=== PATIENT | female | born 1960 | race Caucasian/White ===

== ENCOUNTER → 2018-03-14 16:12 | Outpatient (CLI) | payer OTHER, SELFPAY ==
--- NOTE | 2018-03-14 16:14 | DI.MRI.S_ITS ---
PROCEDURE: MR LUMBAR SPINE WO CON INDICATIONS: chronic low back pain made worse with standing TECHNIQUE: Noncontrast sagittal T1 spin echo and T2 fast echo, sagittal STIR, axial T1 and T2 fast spin echo through the lumbar spine. In cases with scoliosis, additional coronal T2 fast spin echo may be performed. COMPARISON: [facility], CR, L-SPINE 2-3 VIEWS, 01/19/2008, 10:36. [facility], MR, L-SPINE WITHOUT CONTRAST, 01/23/2008, 20:32. [facility], MR, L-SPINE WITHOUT CONTRAST, 03/13/2014, 14:31. FINDINGS: Image quality: Excellent. Alignment and Curvature: There is normal bony alignment. Bone Marrow: Marrow is of normal overall signal. No acute vertebral body compression fractures. Spinal Cord: Conus medullaris terminates at the L1 level. Visualized cord demonstrates normal signal and size. Paraspinous Soft Tissues: No paravertebral masses. T11-T12: Within the left neural foramen, there is a perineural cysts (Tarlov cyst) seen, as series 5 image 12. This is stable compared to 2014. T12-L1: Moderate loss of disc height is seen. Loss of disc signal is seen. Moderate disc bulge is seen, with a central disc extrusion, with superior migration of disc material. There is an associated annular fissure, as on series 6 image 42. No neural foraminal narrowing is seen. There is mild central canal narrowing. These findings are similar to the prior examination. L1-L2: Normal appearance. L2-L3: Mild loss of disc height is seen. Loss of disc signal is seen. Moderate disc bulge is seen, which is eccentric to the right. There is mild right-sided and no left-sided neural foraminal narrowing seen. Mild central canal narrowing is seen. There is a faintly seen the annular fissure posteriorly, as on series 5 image 9. These imaging findings are mildly progressed compared to the prior study. L3-L4: The disc height is well-preserved. Loss of disc signal is seen at this level. Mild to moderate disc bulge is seen, which is eccentric to the right. Moderate facet joint hypertrophy is seen. No significant neural foraminal or central canal narrowing are seen. Stable from the prior study. L4-L5: Moderate loss of disc height is seen. Loss of disc signal is seen. Moderate disc bulge is seen at this level. There is a mild central disc protrusion seen. Mild facet joint hypertrophy is seen. There is mild right-sided and moderate left-sided neural foraminal narrowing seen. Mild central canal narrowing is seen. These findings are similar to the prior examination. L5-S1: Moderate loss of disc height is seen. Loss of disc signal is seen. Mild to moderate disc bulge is seen. Moderate facet joint hypertrophy is seen. There is mild to moderate right-sided and no left-sided neural foraminal narrowing seen. Mild central canal narrowing is seen, which is largely caused by epidural lipomatosis. These findings are similar to the prior examination. IMPRESSION: Multiple levels of lumbar spine degenerative change are seen, which are similar to 2014. Dictated by: Gary Mackay M.D. on 03/14/2018 at 19:13 Approved by: Gary Mackay M.D. on 03/14/2018 at 19:20
== END ==
PROVIDERS: Family Provider Family Medicine; PCP Family Medicine; Visit Provider Family Medicine
DX: M54.5 Low back pain (principal); G89.29 Other chronic pain; M51.36 Other intervertebral disc degeneration, lumbar region; M51.37 Other intervertebral disc degeneration, lumbosacral region
CPT/HCPCS: 72148

== ENCOUNTER → 2019-03-18 18:30 | Outpatient (ROUT) | payer OTHER, SELFPAY ==
[2019-03-18 19:08] LABS: BUN Creatinine Ratio 9.1 (6-22); Blood Urea Nitrogen 10 mg/dL (7-17)
[2019-03-23 10:39] LABS: IgG Subclass 1 521 mg/dL (382-929); IgG Subclass 2 386 mg/dL (241-700); IgG Subclass 3 69 mg/dL (22-178); IgG Subclass 4 48.5 mg/dL (4.0-86.0); IgG Total 1029 mg/dL (600-1640)
== END ==
PROVIDERS: Family Provider Family Medicine; PCP Family Medicine; Visit Provider Physician Assistant Medical
DX: D83.9 Common variable immunodeficiency, unspecified (principal)
CPT/HCPCS: 80299; 82565; 82784; 82787; 83520; 84520

== ENCOUNTER → 2019-11-03 18:09 | Outpatient (ROUT) | payer OTHER, SELFPAY ==
[2019-11-03 19:39] LABS: Alanine Aminotransferase 14 IU/L (<35); Albumin 4.2 g/dL (3.5-5.0); Albumin Globulin Ratio 1.4 (1.0-2.8); Alkaline Phosphatase 124 U/L (38-126); Aspartate Aminotransferase 23 IU/L (14-36); Bilirubin Total 0.6 mg/dL (0.2-1.3); Blood Urea Nitrogen 11 mg/dL (7-17); Calcium 9.5 mg/dL (8.4-10.2); Carbon Dioxide 27 mmol/L (22-32); Chloride 101 mmol/L (98-107); Estimated Glomerular Filt Rate 56.7 mL/min (>60); Glucose 99 mg/dL (70-100); HEMOLYSIS < 15 (0-50); Sodium 138 mmol/L (137-145); Total Protein 7.2 g/dL (6.3-8.2)
[2019-11-03 19:44] LABS: Add Manual Diff / Slide Review NO; Basophils Absolute Auto 100 /uL (0-100); Basophils Percent Auto 0.8 % (0-2); Eosinophils Absolute Auto 100 /uL (0-450); Eosinophils Percent Auto 1.5 % (2-4); Hematocrit 42.4 % (36-46); Hemoglobin 14.8 g/dL (12.0-16.0); Lymphocytes Absolute Auto 1800 /uL (1100-4500); Lymphocytes Percent Auto 26.5 % (25-40); Mean Corpuscular HGB Conc 34.8 % (30-36); Mean Corpuscular Hemoglobin 32.7 PG (26-34); Mean Corpuscular Volume 93.8 fL (80-100); Monocytes Absolute Auto 600 /uL (0-900); Monocytes Percent Auto 8.7 % (3-14); Neutrophils Absolute Auto 4200 /uL (1500-7000); Neutrophils Percent Auto 62.5 % (50-75); Platelet Count 209 X10^3/uL (150-400); Red Blood Cell Count 4.52 X10^6/uL (4.0-5.2); Red Cell Distribution Width 14.5 % (11.6-14.8); White Blood Cell Count 6.8 X10^3/uL (4.5-11.0)
[2019-11-03 20:07] LABS: Cholesterol 153 mg/dL (140-199); HDL Cholesterol 46 mg/dL (40-60); LDL Cholesterol Calculated 83 mg/dL (<100); Triglycerides 122 mg/dL (35-150)
[2019-11-04 16:07] LABS: Immunoglobulin G, Quantitative 992 mg/dL (586-1602)
== END ==
PROVIDERS: Family Provider Family Medicine; PCP Family Medicine; Visit Provider Allergy & Immunology
DX: Z13.220 Encounter for screening for lipoid disorders (principal); D83.9 Common variable immunodeficiency, unspecified; R53.83 Other fatigue
CPT/HCPCS: 80053; 80061; 82784; 85025

== ENCOUNTER → 2019-11-13 14:43 | Outpatient (CLI) | payer OTHER, SELFPAY ==
--- NOTE | 2019-11-13 14:45 | DI.MG.S_ITS ---
BILATERAL DIGITAL SCREENING MAMMOGRAM 3D/2D WITH CAD: 11/13/2019 CLINICAL: Routine screening. Family history of breast cancer. Comparison is made to exams dated: 08/21/2016 mammogram, 03/15/2015 mammogram, and 03/13/2014 mammogram - [facility]. The tissue of both breasts is heterogeneously dense. This may lower the sensitivity of mammography. Current study was also evaluated with a Computer Aided Detection (CAD) system. There are benign calcifications in both breasts. No significant masses, calcifications, or other findings are seen in either breast. There has been no significant interval change. IMPRESSION: There is no mammographic evidence of malignancy. A 1 year screening mammogram is recommended. This exam was interpreted at Station ID: [id number]. NOTE: For mammograms, a report in lay terms will be sent to the patient. Approximately 15% of breast malignancies will not be visualized mammographically. In the management of a palpable breast mass, a negative mammogram must not discourage biopsy of a clinically suspicious lesion. Electronically Signed By: Grant alarcon/tereza:11/13/2019 16:13:03 copy to: KEILY PIERCE copy to: Kun Skelton letter sent: Normal Exam ACR BI-RADS Category 2: Benign Finding(s) 3342F
== END ==
PROVIDERS: Family Provider Family Medicine; PCP Family Medicine; Referring Provider Family Medicine; Visit Provider Family Medicine
DX: Z12.31 Encounter for screening mammogram for malignant neoplasm of breast (principal); Z80.3 Family history of malignant neoplasm of breast
CPT/HCPCS: 77063; 77067

== ENCOUNTER → 2020-03-28 20:00 | Outpatient (ROUT) | payer OTHER, SELFPAY ==
[2020-03-28 20:07] LABS: Add Manual Diff / Slide Review NO; Basophils Absolute Auto 0 /uL (0-100); Basophils Percent Auto 0.1 % (0-2); Eosinophils Absolute Auto 100 /uL (0-450); Eosinophils Percent Auto 1.4 % (2-4); Hematocrit 39.5 % (36-46); Hemoglobin 13.8 g/dL (12.0-16.0); Lymphocytes Absolute Auto 2300 /uL (1100-4500); Mean Corpuscular HGB Conc 34.9 % (30-36); Mean Corpuscular Volume 94.6 fL (80-100); Monocytes Absolute Auto 700 /uL (0-900); Monocytes Percent Auto 9.5 % (3-14); Neutrophils Absolute Auto 4700 /uL (1500-7000); Platelet Count 193 X10^3/uL (150-400); Red Blood Cell Count 4.18 X10^6/uL (4.0-5.2); Red Cell Distribution Width 13.5 % (11.6-14.8); White Blood Cell Count 7.9 X10^3/uL (4.5-11.0)
[2020-03-28 20:24] LABS: Blood Urea Nitrogen 10 mg/dL (7-17); Estimated Glomerular Filt Rate > 60.0 mL/min (>60)
[2020-03-30 04:07] LABS: Immunoglobulin G, Quantitative 908 mg/dL (586-1602)
== END ==
PROVIDERS: Family Provider Family Medicine; PCP Family Medicine; Visit Provider Allergy & Immunology
DX: M54.5 Low back pain (principal); D83.8 Other common variable immunodeficiencies; J45.909 Unspecified asthma, uncomplicated
CPT/HCPCS: 82565; 82784; 84520; 85025

== ENCOUNTER 2020-03-29 16:49 | Observation (INO) | payer OTHER, SELFPAY ==
[2020-03-29 16:56] VITALS: BP 131/36; PULSE 79; RESP 16; TEMP 36.6; O2SAT 97; BMI 35.6
--- NOTE | 2020-03-29 17:58 | ED_ITS ---
HPI - Syncope General Chief Complaint: Dizziness Stated Complaint: ALMOST PASSED OUT Time Seen by Provider: 03/29/20 17:58 Source: patient Mode of arrival: Ambulatory Limitations: no limitations History of Present Illness HPI narrative: 59-year-old female smoker with a history of hyperlipidemia, GERD, reactive airway disease, anxiety, and common variable immunodeficiency presents with her and a chief complaint of an episode of neurologic concern from yesterday. The patient receives IVIG infusions at home with the assistance of an infusion nurse every 3 weeks and has been doing so for quite some time. Yesterday at the completion of her session when attempting to ambulate she was significantly listing to the right side and had difficulty using her right arm and right leg. Additionally she complains of trouble maintaining her balance. She states that she frequently has episodes of dizziness or vertigo but this is much different than her normal situation. She denies any blurred vision or trouble with speech. She denies any confusion. She denies any injury, fever or chills. She has had no nausea, vomiting or diarrhea. Her states that her symptoms lasted somewhere between 15 and 30 minutes. She has long since been at her baseline. She was not activated as a code stroke given her lack of ongoing symptoms. Onset (ago): day(s) -: minutes(s) Prodromal symptoms: none Injuries sustained associated with event: none Current symptoms: none Treatments prior to arrival: none Related Data Home Medications Medication Instructions Recorded Confirmed mometasone-formoterol HFA 200 2 puff INHALATION ONCE PRN gram 01/04/20 03/29/20 mcg-5 mcg/actuation aerosol inhaler varenicline [Chantix Starting See Rx Instructions PO PER PKG DIR 03/29/20 03/29/20 Month Box] MDD 2 mg Previous Rx's Medication Instructions Recorded meclizine 25 mg tablet 25 mg PO TID #100 tab 02/02/18 metoclopramide HCl 10 mg tablet 10 mg PO ACHS #360 tab 05/11/19 tolterodine 4 mg capsule,extended 4 mg PO DAILY #90 cap 05/11/19 release 24 hr acyclovir 400 mg tablet 400 mg PO QDAY #90 tab 11/13/19 atorvastatin 10 mg tablet 10 mg PO HS #90 tab 11/13/19 clonazepam 1 mg tablet 1 mg PO TID #270 tab 11/13/19 pantoprazole 40 mg tablet,delayed 40 mg PO BID #180 tab 11/13/19 release bupropion HCl 150 mg tablet,12 hr 150 mg PO BID #180 tab 02/25/20 sustained-release prazosin 2 mg capsule 8 mg PO QDAY #360 cap 02/25/20 trazodone 50 mg tablet See Rx Instructions PO HS #360 tab 02/25/20 MDD 200 mg Allergies Allergy/AdvReac Type Severity Reaction Status Date / Time adhesive tape Allergy Unknown WELT Verified 03/29/20 18:10 Review of Systems Constitutional Constitutional: Denies chills, Denies fatigue, Denies fever(s), Denies frequent falls, Denies lethargy and Reports weakness Eyes Eyes: Denies change in vision, Denies eye discharge, Denies irritation and Denies loss of vision ENT Ears, Nose, Mouth, and Throat: Denies change in voice, Denies dizziness, Denies neck pain, Denies sore throat and Denies throat swelling Cardiovascular Cardiovascular: Denies chest pain, Denies irregular heart rhythm, Denies lightheadedness, Denies palpitations, Denies dyspnea, Denies dyspnea on exertion and Denies orthopnea Respiratory Respiratory: Denies cough, Denies dyspnea, Denies dyspnea on exertion and Denies wheezing Gastrointestinal Gastrointestinal: Denies abdominal pain, Denies change in bowel habits, Denies diarrhea, Denies nausea and Denies vomiting Musculoskeletal Musculoskeletal: Reports abnormal gait, Denies neck pain and Denies numbness Integumentary/Breasts Skin/Breast: Denies pruritus, Denies erythema, Denies rash and Denies wounds Neurologic Neurologic: Reports abnormal gait, Denies behavioral changes, Denies confusion, Denies dizziness, Denies frequent falls, Denies loss of vision, Denies numbness and Reports weakness Psychiatric Psychiatric: Denies anxiety, Denies behavioral changes, Denies confusion, Denies depression, Denies homicidal ideation and Denies suicidal ideation Endocrine Endocrine: Denies fatigue, Denies flushing and Denies palpitations Hematologic/Lymphatic Hematologic/Lymphatic: Denies easy bruising Allergic/Immunologic Allergic/Immunologic: Denies urticaria, Denies throat swelling and Denies wheezing Patient History Medical History Anxiety (Chronic) Depression (Chronic) GERD (gastroesophageal reflux disease) (Chronic) Herpes (Chronic) Reactive airway disease (Chronic) Surgical History History of cystoscopy (Resolved 12/04/13) History of third molar tooth extraction (Resolved) Status post right foot surgery (Resolved) Status post tubal ligation (Resolved) Social History household members: spouse Smoking Status: Current some day smoker Smoking Status: Current some day smoker tobacco type: cigarettes alcohol intake frequency: 0-2 drinks per day Substance Use Type: marijuana Exam Narrative Exam Narrative: GENERAL: [59] year old patient appears stated age. Well- nourished, well-developed patient, in mild distress. HEAD: Atraumatic. Normocephalic. EYES: Pupils equal round and reactive. Extraocular motions intact. No scleral icterus. No injection or drainage. ENT: Nose without bleeding, purulent drainage. Throat without erythema, tonsillar hypertrophy or exudate. Airway patent. NECK: Trachea midline. Non tender CARDIOVASCULAR: Regular rate and rhythm without murmurs, gallops, or rubs. RESPIRATORY: Clear to auscultation. Breath sounds equal bilaterally. No wheezes, rales, or rhonchi. GASTROINTESTINAL: Abdomen soft, non-tender, nondistended. EXTREMITIES: No edema or joint tenderness. BACK: Nontender without deformity or crepitance. No flank tenderness. NEURO: AOx3. SKIN: No rash or erythema of visible areas NIH Stroke Scale 1a. LOC: Patient is alert and keenly responsive (0) 1b. LOC Questions: Patient answers both LOC questions accurately (0) 1c. LOC Commands: Patient performs both tasks correctly (0) 2. Best Gaze: Normal (0) 3. Visual: No visual loss (0) 4. Facial palsy: Normal symmetrical movements (0) 5. Motor arm: No drift (0) 6. Motor leg: No drift (0) 7. Limb ataxia: Absent (0) 8. Sensory: Normal (0) 9. Best language: No aphasia; normal (0) 10. Dysarthria: Normal (0) 11. Extinction and inattention: No abnormality (0) NIHSS: 0 Initial Vital Signs Initial Vital Signs: Vital Signs Temperature 97.8 F 03/29/20 16:56 Pulse Rate 79 03/29/20 16:56 Respiratory Rate 16 03/29/20 16:56 Blood Pressure 131/36 L 03/29/20 16:56 Pulse Oximetry 97 03/29/20 16:56 Course Orders Ordered: ED Orders 03/29/20 18:21 Complete Blood Count AUTO DIFF Stat Comprehensive Metabolic Panel Stat Prothrombin Time INR Stat Troponin & CK Cardiac Panel Stat 03/29/20 18:30 CT head/brain wo con Stat 03/29/20 19:19 COVID19 -ED/INPAT/OR/L&D Stat Acetaminophen (Tylenol) 650 mg PO Q6HR PRN PRN Reason: Fever/Mild Pain (1-3) Al Hydrox/Mg Hydrox/Simethicone (Maalox Plus) 30 ml PO Q6HR PRN PRN Reason: Dyspepsia Calcium Carbonate (Tums) 1,000 mg PO Q4HR PRN PRN Reason: Dyspepsia Sodium Chloride (Normal Saline 0.9%) 1,000 mls @ 150 mls/hr IV CONT ANDREINA Last Admin: 03/30/20 01:58 Dose: 150 mls/hr Documented by: Infusion: 03/30/20 01:58 Dose: 150 mls/hr Documented by: Admin: 03/29/20 19:58 Dose: 150 mls/hr Documented by: BERNARDO Lorazepam (Ativan) 0.5 mg PO Q6HR PRN PRN Reason: Anxiety Naloxone HCl (Narcan) 0.2 mg IV Q2MIN PRN PRN Reason: Opiate Reversal Discontinued Medications Aspirin (Aspirin Chew) 324 mg PO NOW ONE Stop: 03/29/20 19:49 Last Admin: 03/29/20 19:57 Dose: 324 mg Documented by: BERNARDO Influenza Virus Vaccine (Flu Vaccine) 0.5 ml IM .ONCE ONE Stop: 03/29/20 21:06 Last Admin: 03/29/20 21:42 Dose: 0.5 ml Documented by: LAYLA Vital Signs Vital signs: Vital Signs - 8 hr 03/29/20 19:16 03/29/20 19:30 Pulse Rate 70 70 Respiratory Rate 25 H 20 Blood Pressure 145/79 H Pulse Oximetry 96 96 MDM - Syncope Lab Data Result diagrams: 03/29/20 18:21 03/29/20 18:21 Labs: Lab Results 03/29/20 03/29/20 03/29/20 Range/Units 18:21 18:21 18:21 WBC 7.4 (4.5-11.0) X10^3/uL RBC 4.34 (4.0-5.2) X10^6/uL Hgb 14.3 (12.0-16.0) g/dL Hct 40.7 (36-46) % MCV 93.9 (80-100) fL MCH 33.0 (26-34) PG MCHC 35.1 (30-36) % RDW 13.1 (11.6-14.8) % Plt Count 193 (150-400) X10^3/uL Neut % (Auto) 57.8 (50-75) % Lymph % (Auto) 29.0 (25-40) % Emmons % (Auto) 10.6 (3-14) % Eos % (Auto) 1.7 L (2-4) % Baso % (Auto) 0.9 (0-2) % Neut # (Auto) 4300 (9648-4185) /uL Lymph # (Auto) 2100 (8919-5237) /uL Emmons # (Auto) 800 (0-900) /uL Eos # (Auto) 100 (0-450) /uL Baso # (Auto) 100 (0-100) /uL PT 12.7 (10.1-12.7) SECONDS INR 1.1 (0.9-1.3) Sodium 138 (137-145) mmol/L Potassium 4.1 (3.4-5.1) mmol/L Chloride 102 (98-107) mmol/L Carbon Dioxide 29 (22-32) mmol/L BUN 10 (7-17) mg/dL Creatinine 0.87 (0.52-1.04) mg/dL Estimated GFR > 60.0 (>60) mL/min BUN/Creatinine Ratio 11.5 (6-22) Glucose 92 (70-100) mg/dL Calcium 9.2 (8.4-10.2) mg/dL Total Bilirubin 0.6 (0.2-1.3) mg/dL AST 20 (14-36) IU/L ALT 13 (<35) IU/L Alkaline Phosphatase 122 (38-126) U/L Total Creatine Kinase < 20 L (30-135) U/L CK-MB (CK-2) TNP CK-MB (CK-2) Rel Index TNP Troponin I < 0.012 (0.01-0.034) ng/mL Total Protein 8.2 (6.3-8.2) g/dL Albumin 4.1 (3.5-5.0) g/dL Globulin 4.1 (1.7-4.1) g/dL Albumin/Globulin Ratio 1.0 (1.0-2.8) COVID-19 PCR (Negative) 03/29/20 Range/Units 19:19 WBC (4.5-11.0) X10^3/uL RBC (4.0-5.2) X10^6/uL Hgb (12.0-16.0) g/dL Hct (36-46) % MCV (80-100) fL MCH (26-34) PG MCHC (30-36) % RDW (11.6-14.8) % Plt Count (150-400) X10^3/uL Neut % (Auto) (50-75) % Lymph % (Auto) (25-40) % Emmons % (Auto) (3-14) % Eos % (Auto) (2-4) % Baso % (Auto) (0-2) % Neut # (Auto) (6806-8368) /uL Lymph # (Auto) (5617-6069) /uL Emmons # (Auto) (0-900) /uL Eos # (Auto) (0-450) /uL Baso # (Auto) (0-100) /uL PT (10.1-12.7) SECONDS INR (0.9-1.3) Sodium (137-145) mmol/L Potassium (3.4-5.1) mmol/L Chloride (98-107) mmol/L Carbon Dioxide (22-32) mmol/L BUN (7-17) mg/dL Creatinine (0.52-1.04) mg/dL Estimated GFR (>60) mL/min BUN/Creatinine Ratio (6-22) Glucose (70-100) mg/dL Calcium (8.4-10.2) mg/dL Total Bilirubin (0.2-1.3) mg/dL AST (14-36) IU/L ALT (<35) IU/L Alkaline Phosphatase (38-126) U/L Total Creatine Kinase (30-135) U/L CK-MB (CK-2) CK-MB (CK-2) Rel Index Troponin I (0.01-0.034) ng/mL Total Protein (6.3-8.2) g/dL Albumin (3.5-5.0) g/dL Globulin (1.7-4.1) g/dL Albumin/Globulin Ratio (1.0-2.8) COVID-19 PCR Negative (Negative) Imaging Data CT scan - head: Radiologist's Impression: Flakita Rodriguez 59 F [address] [address] [address] Scan Report Signed Patient: Flakita Rodriguez LMR#: [id number] : 1960cct:[id number] Age/Sex: 59 / FDate of Service: 03/29/20 Loc: ED Accession Number: [id number] Procedure: CT head/brain wo con Ordering Provider: Mohamud Pop D.O. PROCEDURE: CT HEAD/BRAIN WO CON INDICATIONS: NOT TPA candidate. R sided weakness and ataxia yesterday TECHNIQUE: Noncontrast 4.5 mm thick angled axial sections acquired from the foramen magnum to the vertex, with coronal and sagittal reformats. For radiation dose reduction, the following was used: automated exposure control, adjustment of mA and/or kV according to patient size. COMPARISON: None. FINDINGS: Image quality: Excellent. CSF spaces: Basal cisterns are patent. No extra-axial fluid collections. Ventricles are normal in size and shape. Brain: No midline shift. No intracranial masses or hemorrhage. Corey-white matter interface is normal. Skull and face: Calvarium and visualized facial bones are intact, without suspicious lesions. Sinuses: Visualized sinuses and mastoids are clear. IMPRESSION: No acute intracranial process. Dictated by: Beto Parrish M.D. on 03/29/2020 at 19:18 Approved by: Beto Parrish M.D. on 03/29/2020 at 19:24 [facility] Narrative Medical decision making narrative: 59-year-old female with a 15-30 minute episode of fully resolved focal neurologic findings presents with her . She requires hospitalization for stroke workup including echo, MRI and stabiliz ation of medications. Discharge Plan Departure Patient Disposition: Admitted as Observation Clinical Impression: Urinary urgency Discharge Date/Time: 03/29/20 20:48 Referrals: Sai Lindquist MD [Primary Care Provider] - Admit Date/Time: 03/29/20 19:47 Admit Provider: Erma Soares
--- NOTE | 2020-03-29 18:30 | DI.CT.S_ITS ---
PROCEDURE: CT HEAD/BRAIN WO CON INDICATIONS: NOT TPA candidate. R sided weakness and ataxia yesterday TECHNIQUE: Noncontrast 4.5 mm thick angled axial sections acquired from the foramen magnum to the vertex, with coronal and sagittal reformats. For radiation dose reduction, the following was used: automated exposure control, adjustment of mA and/or kV according to patient size. COMPARISON: None. FINDINGS: Image quality: Excellent. CSF spaces: Basal cisterns are patent. No extra-axial fluid collections. Ventricles are normal in size and shape. Brain: No midline shift. No intracranial masses or hemorrhage. Corey-white matter interface is normal. Skull and face: Calvarium and visualized facial bones are intact, without suspicious lesions. Sinuses: Visualized sinuses and mastoids are clear. IMPRESSION: No acute intracranial process. Dictated by: Beto Parrish M.D. on 03/29/2020 at 19:18 Approved by: Beto Parrish M.D. on 03/29/2020 at 19:24
[2020-03-29 18:39] LABS: Add Manual Diff / Slide Review NO; Basophils Absolute Auto 100 /uL (0-100); Basophils Percent Auto 0.9 % (0-2); Eosinophils Absolute Auto 100 /uL (0-450); Eosinophils Percent Auto 1.7 % (2-4); Hematocrit 40.7 % (36-46); Hemoglobin 14.3 g/dL (12.0-16.0); Lymphocytes Absolute Auto 2100 /uL (1100-4500); Mean Corpuscular HGB Conc 35.1 % (30-36); Mean Corpuscular Volume 93.9 fL (80-100); Monocytes Absolute Auto 800 /uL (0-900); Monocytes Percent Auto 10.6 % (3-14); Neutrophils Absolute Auto 4300 /uL (1500-7000); Neutrophils Percent Auto 57.8 % (50-75); Platelet Count 193 X10^3/uL (150-400); Red Blood Cell Count 4.34 X10^6/uL (4.0-5.2); Red Cell Distribution Width 13.1 % (11.6-14.8); White Blood Cell Count 7.4 X10^3/uL (4.5-11.0)
[2020-03-29 18:44] LABS: INR 1.1 (0.9-1.3); Prothrombin Time 12.7 SECONDS (10.1-12.7)
[2020-03-29 18:49] LABS: Alanine Aminotransferase 13 IU/L (<35); Albumin 4.1 g/dL (3.5-5.0); Alkaline Phosphatase 122 U/L (38-126); Aspartate Aminotransferase 20 IU/L (14-36); BUN Creatinine Ratio 11.5 (6-22); Bilirubin Total 0.6 mg/dL (0.2-1.3); Blood Urea Nitrogen 10 mg/dL (7-17); Calcium 9.2 mg/dL (8.4-10.2); Carbon Dioxide 29 mmol/L (22-32); Chloride 102 mmol/L (98-107); Creatine Kinase < 20 U/L (30-135); Estimated Glomerular Filt Rate > 60.0 mL/min (>60); Globulin 4.1 g/dL (1.7-4.1); Glucose 92 mg/dL (70-100); HEMOLYSIS < 15 (0-50); Potassium 4.1 mmol/L (3.4-5.1); Sodium 138 mmol/L (137-145); Total Protein 8.2 g/dL (6.3-8.2)
[2020-03-29 19:01] LABS: Troponin I < 0.012 ng/mL (0.01-0.034)
[2020-03-29 19:16] VITALS: PULSE 70; RESP 25; O2SAT 96
[2020-03-29 19:30] VITALS: BP 145/79; PULSE 70; RESP 20; O2SAT 96
[2020-03-29 19:34] LABS: COVID19 -Nasal RAPID Negative (Negative)
--- NOTE | 2020-03-29 19:50 | DI.ECHO.S_ITS ---
[facility] +---------+ : : [address] : : : : [id number] : : : : Phone: [phone]+ Echocardiogram Report + + :Name: RAF STEVENS Study Date: 03/30/2020 Height: 67.5 in: :[facility] Weight: 231 lb : : Gender: Female BSA: 2.2 m2 : :: 1960 Age: 59 yrs BP: 143/83 mmHg: :Reason For Study: TIA : :Ordering Physician: DUANE, : :BNON[place] Performed By: Emani Callaway : :Referring: BONNY ZEPEDA : + + Interpretation Summary Technically difficult study limiting endothelial visualization. 1) Normal left ventricular thickness, size, wall motion, and systolic function (EF 65-70%). 2) Normal right ventricular size and function. 3) There is mild to moderate mitral regurgitation. 4) Right ventricular systolic pressure is estimated to be 47 mmHg plus the clinically estimated CVP which cannot be estimated on this exam. 5) Bubble study done but bubbles not visualized due to poor acoustic windows. 6) No prior Echo available for comparison. Procedure: A two-dimensional transthoracic echocardiogram with color flow and Doppler was performed. The study quality was technically difficult. The study quality was technically limited. A contrast injection of Definity was performed to improve assessment of LV function. Contrast was injected into an intravenous site in the right arm. There is no prior echocardiogram noted for this patient. A saline contrast injection was performed to assess for cardiac shunting. The injection was performed through an intravenous line in the right arm. Left Ventricle: The left ventricle is normal in size and wall thickness. The ejection fraction is estimated to be 65-70%. Left ventricular systolic function is normal without focal wall motion abnormalities. Diastolic function could not be accurately assessed due to unobtainable data. Right Ventricle: The right ventricle is normal in size and function. Atria: The left atrial size is normal. Right atrial size is normal. There is no Doppler evidence for an interatrial shunt. Mitral Valve: The mitral valve leaflets appear mildly thickened, but open well. There is mild to moderate mitral regurgitation. Aortic Valve: The aortic valve is not well visualized. There is no aortic valve stenosis. No aortic regurgitation is present. Tricuspid Valve: The tricuspid valve is not well visualized, but is grossly normal. There is mild tricuspid regurgitation. Right ventricular systolic pressure is estimated to be 47 mmHg plus the clinically estimated CVP which cannot be estimated on this exam. Pulmonic Valve: The pulmonic valve is not well visualized. There is trace pulmonic regurgitation. Great Vessels: The aortic root is not well visualized but is probably normal size. The ascending aorta is normal in size. The inferior vena cava was not visualized. Pericardium/ Pleura There is no pericardial effusion. There is an anterior echo-free space consistent with a fat pad. There is no pleural effusion. MMode/2D Measurements & Calculations LVIDd: 5.0 cm LVOT diam: 2.0 cm LVIDs: 3.0 cm asc Aorta Diam: 2.6 cm FS: 41.1 % Ao Arch Diam (Prox Trans): 2.7 cm EPSS: 0.61 cm IVSd: 0.80 cm LVPWd: 0.77 cm LV montoya. diameter/BSA (cm/m^2): 2.3 LV sys. diameter/BSA (cm/m^2): 1.4 LA A2 area: 20.1 cm2 RA long axis: 4.8 cm LA A4 area: 18.2 cm2 RA area: 16.2 cm2 LA length (vol): 5.3 cm RA vol: 46.4 ml LA vol: 58.6 ml RA : 21.5 ml/m2 LA vol index: 27.1 ml/m2 RVD1 (basal): 2.9 cm TAPSE: 2.0 cm Doppler Measurements & Calculations Ao V2 max: 125.2 cm/sec LVOT Max Dmitri: 100.9 cm/sec Ao V2 mean: 88.7 cm/sec LV V1 max P.1 mmHg Ao max P.3 mmHg LV V1 VTI: 19.8 cm Ao mean P.4 mmHg KAM(I,D): 2.7 cm2 Ao V2 VTI: 23.0 cm KAM(V,D): 2.5 cm2 sev ratio: 0.86 KAM indexed to BSA (cm^2/m^2): 1.2 Med Peak E' Dmitri: 6.3 cm/sec TR max dmitri: 343.4 cm/sec Lat Peak E' Dmitri: 7.5 cm/sec TR max P.2 mmHg MVA(VTI): 1.3 cm2 PA V2 max: 71.2 cm/sec PA V2 mean: 47.2 cm/sec PA mean P.0 mmHg PA pr(Accel): 27.6 mmHg MV V2 mean: 132.8 cm/sec SV(LVOT): 61.7 ml MV mean P.8 mmHg MV V2 VTI: 48.5 cm Reading Physician:01:51 PM
[2020-03-29] MEDS: ASPIRIN 81 MG CHEW TAB 324 MG PO (19:57)
[2020-03-29] MEDS: SODIUM CHLORIDE 0.9% 1,000 ML 150 ML IV (19:58)
[2020-03-29 20:00] VITALS: BP 117/93; PULSE 72; RESP 25; O2SAT 96
[2020-03-29 20:45] VITALS: BP 143/83; PULSE 70; RESP 18; TEMP 37; O2SAT 98
[2020-03-29 20:55] VITALS: BMI 35.9
[2020-03-29 21:41] LABS: RBC Urine None Seen (0-5/HPF)
[2020-03-29] MEDS: INFLUENZA VACCINE 0.5 ML SYRINGE IM (21:42)
[2020-03-29 21:53] LABS: Bacteria Urine Many (>30); Culture Indicated Urine Cult Not Indicated; Squamous Epithelial Cell Urine 10-30 /HPF (0-5/HPF); WBC Urine 0-1/HPF (0-5/HPF)
--- NOTE | 2020-03-29 22:08 | PC.NURSE ---
Pt arrived by wheelchair from ER at approx 1920. She denied dizziness, N and pain. She states she has had vertigo for 20 years. This feeling was like a pull to the right and she thought she was going down. She states she has urinary urgency and requested a depends. LS clear, NSR or tele, hypo BTs and states her last BM was yesterday and it was normal and she does not normally go every day. Skin is clear. VSS, A and O x 4.
[2020-03-30] VITALS: BP 136/74; PULSE 68; RESP 18; TEMP 36.3; O2SAT 96
[2020-03-30] MEDS: SODIUM CHLORIDE 0.9% 1,000 ML 150 ML IV (01:58)
--- NOTE | 2020-03-30 03:26 | PC.NURSE ---
Call to Dr. Soares, request for med order from patient of 50mg Trazadone per med req.
[2020-03-30 04:12] VITALS: BP 127/64; PULSE 77; RESP 18; TEMP 36.4; O2SAT 95
[2020-03-30 05:34] LABS: Add Manual Diff / Slide Review NO; Basophils Absolute Auto 100 /uL (0-100); Basophils Percent Auto 1.1 % (0-2); Eosinophils Absolute Auto 100 /uL (0-450); Hematocrit 38.5 % (36-46); Hemoglobin 13.5 g/dL (12.0-16.0); Lymphocytes Absolute Auto 2200 /uL (1100-4500); Lymphocytes Percent Auto 36.2 % (25-40); Mean Corpuscular Hemoglobin 33.2 PG (26-34); Mean Corpuscular Volume 94.8 fL (80-100); Monocytes Absolute Auto 600 /uL (0-900); Monocytes Percent Auto 9.5 % (3-14); Neutrophils Absolute Auto 3200 /uL (1500-7000); Neutrophils Percent Auto 51.2 % (50-75); Platelet Count 166 X10^3/uL (150-400); Red Blood Cell Count 4.06 X10^6/uL (4.0-5.2); Red Cell Distribution Width 13.6 % (11.6-14.8); White Blood Cell Count 6.2 X10^3/uL (4.5-11.0)
[2020-03-30 05:37] LABS: Cholesterol 124 mg/dL (140-199); HDL Cholesterol 35 mg/dL (40-60); LDL Cholesterol Calculated 71 mg/dL (<100); Triglycerides 91 mg/dL (35-150)
[2020-03-30 05:38] LABS: Alanine Aminotransferase 13 IU/L (<35); Albumin 3.6 g/dL (3.5-5.0); Alkaline Phosphatase 100 U/L (38-126); Aspartate Aminotransferase 20 IU/L (14-36); BUN Creatinine Ratio 12.2 (6-22); Bilirubin Total 0.5 mg/dL (0.2-1.3); Blood Urea Nitrogen 10 mg/dL (7-17); Calcium 8.9 mg/dL (8.4-10.2); Carbon Dioxide 30 mmol/L (22-32); Chloride 105 mmol/L (98-107); Estimated Glomerular Filt Rate > 60.0 mL/min (>60); Globulin 3.6 g/dL (1.7-4.1); Glucose 114 mg/dL (70-100); HEMOLYSIS < 15 (0-50); Potassium 3.7 mmol/L (3.4-5.1); Sodium 139 mmol/L (137-145); Total Protein 7.2 g/dL (6.3-8.2)
[2020-03-30 06:14] LABS: TSH w/ Reflex to FT4 2.85 uIU/mL (0.47-4.68)
[2020-03-30 07:29] VITALS: BP 126/83; PULSE 72; RESP 16; TEMP 36.1; O2SAT 93
[2020-03-30] MEDS: LORazepam 0.5 MG TABLET PO (08:20)
[2020-03-30] MEDS: MAG HYDROX/ALUM/SIMETH 30 ML UDC PO (08:20)
[2020-03-30] MEDS: CALCIUM CARBONATE 500 MG TAB 1000 MG PO (08:20)
--- NOTE | 2020-03-30 10:45 | DI.CT.S_ITS ---
PROCEDURE: CT ANGIO HEAD AND NECK INDICATIONS: stroke TECHNIQUE: Post-contrast 4.5 mm thick sections then re-acquired from the foramen magnum to the vertex. 3-dimensional mybxodk-mtyividql-ujijsveayk (MIP) and/or volume rendering reformats were acquired of the central intracranial vasculature and neck separately. COMPARISON: [facility], CT, CT HEAD/BRAIN WO CON, 03/29/2020, 18:33. FINDINGS: Image quality: Excellent. BRAIN: CSF spaces: Ventricles are normal in size and shape. Basal cisterns are patent. No extra-axial fluid collections. Brain: No midline shift. No intracranial bleeds or masses. Corey-white matter interface appears intact. Skull and face: Calvarium and facial bones appear intact, without suspicious lesions. Orbits appear normal. Sinuses: Sinuses and mastoids are clear. HEAD CT ANGIOGRAPHY: Anterior circulation: Intracranial internal carotid arteries are normal in size and flow. noid portion of the left internal carotid artery. The flow within the paired anterior cerebral arteries is normal and symmetric. The flow within the middle cerebral arteries is normal and symmetric. The anterior communicating artery is seen. No aneurysms are seen. Posterior circulation: Visualized portions of the vertebral arteries demonstrate normal caliber, and join to form a normal appearing basilar artery. Flow within the posterior cerebral arteries is normal and symmetric. No aneurysms are seen. NECK CT ANGIOGRAPHY: Carotid system: The great vessels demonstrate a conventional anatomy as they arise from the aortic arch. The origins of the common carotid arteries appear patent. The common carotid arteries demonstrate normal caliber and courses. The bifurcation regions are both widely patent. The internal carotid arteries demonstrate normal calibers and courses. Mild intimal thickening along the proximal aspects of the internal carotid arteries. Posterior circulation: The origins of the vertebral arteries both appear widely patent. The more superior extracranial portions of both vertebral arteries also demonstrate normal courses and calibers. They join to form a normal appearing basilar artery. Soft tissues: Visualized neck soft tissues demonstrate no suspicious abnormalities. Bones: No suspicious bony lesions. Multilevel cervical spondylosis. IMPRESSION: No acute cerebrovascular occlusion. No carotid or vertebral artery dissection. Mild atherosclerotic disease of the internal carotid arteries without high-grade stenosis. Any quantitative measurements of stenosis were performed using NASCET criteria. Dictated by: Iain Ramirez M.D. on 03/30/2020 at 10:34 Approved by: Iain Ramirez M.D. on 03/30/2020 at 10:45
--- NOTE | 2020-03-30 10:50 | PC.NURSE ---
Day shift: Unable to do the MRI because Pt has metal in her back from a pain control device. MRI techs called the 800 number and I.H. MRI machine will not be safe. Dr Soares informed and a head and neck angio CT was ordered by this signwriter per MD instructions. The echo has been performed and Pt tolerated well. Pt's spouse at bedside for support.
[2020-03-30 12:13] VITALS: BP 134/80; PULSE 85; RESP 16; TEMP 36.1; O2SAT 93
--- NOTE | 2020-03-30 13:17 | PM.HP.1 ---
History of Present Illness History of Present Illness Date Patient Seen: 03/30/20 Time Patient Seen: 13:17 Date of Onset of Symptoms: 03/29/20 Chief complaint: ALMOST PASSED OUT Narrative: This very pleasant 59-year-old female is under the primary care of Dr. anne Lindquist. She presented to the emergency room 24 hours after symptoms that were concerning for possible TIA. At the time that she presented to the Emergency room she had no symptoms and her workup in the emergency department was entirely normal. However the emergency room physician felt strongly that she was still at risk for recurrent neurologic symptoms over the next 24 hours and therefore patient was admitted to the hospital for observation and further workup. Unfortunately we were not able to complete the workup because she has an implantable stimulator in her back for chronic back pain and we were unable to do the MRI but did do a CT angiogram head and neck which was unrevealing. The patient had no further symptoms during her hospitalization. The symptoms that prompted the patient 24 hours later to seek medical care were feeling loss of control of her right upper extremity and her right lower extremity. She has a history of combined variable immunodeficiency and receives IVIG every 3 weeks. She has a home health nurse who comes to her home and infuses it. She was sitting in a large recliner for about 2-1/2 hours and she went to stand up and she got out of the recliner but felt that her right leg and arm would not work. She lunged forward and grabbed the IV pole with her left hand and was then pin wheeling around. The nurse help stabilizer and her was in another room any heard the commotion and came in and is soon as he arrived which was approximately 60 seconds later she was able to walk with his assistance. He walked around the house and then took her outside for a cigarette. She had no associated symptoms. She had no dysarthria. She had no visual changes. She had no facial asymmetry. She had no paresthesias anywhere throughout the body. She had no headache. She had no chest pain. She had no diaphoresis or shortness of breath associated with this. Her symptoms resolved quickly and she had no further symptoms but was talking to somebody 1 of her friends about what had happened and they said she should go when Nori 24 hours later she sought emergency medical care. She had labs, CT of her head and EKG which were all normal in the ER and she was admitted for further observation and workup. She has had no further symptoms since the hospitalization and is feeling good at the time that I interviewed her the following day. Past medical history: 1. Anxiety 2. Depression 3. Insomnia 4. Chronic lumbar degenerative disc disease requiring implantation of a stimulating device 1 year ago which has effectively helped her pain. 5. PTSD 6. Overactive bladder 7. Hyperlipidemia 8. Combined variable immunodeficiency 9. Tobacco abuse 10. Vertigo 11. GERD 12. Reactive airway disease Current medications are metoclopramide 10 mg q.i.d., pantoprazole 40 mg daily, bupropion SR 150 mg daily, atorvastatin, trazodone, buspirone, prazosin, Detrol, acyclovir, clonazepam 1 mg tablets and she can take it up to 3 times a day and usually takes it twice a day; just started Chantix is on her 6th day of it Allergies no known drug allergies Past surgical history: Caesarean section x1 Right foot surgery and Achilles lengthening Nerve stimulator implantation the lumbar spine Past OB history normal spontaneous vaginal delivery x1 due to ovarian cyst Healthy behaviors: Patient is currently a smoker but just started Chantix to quit again Patient does not drink alcohol Patient does not use drugs Family history: Her mom age 63 from a stroke secondary to a cerebral aneurysm she did not smoke Dad at 75 from metastatic cancer, unknown primary, he smoked and drinks Multiple family members with hypertension Patient has 6 siblings, she is 4. Social history: Patient was born and raised in [place]. 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 She is and has been with her current for 20 years and they live together in [place]. Patient has 2 children age 40s Review of systems is negative other than HPI Negative for any fevers, rashes, headaches, visual changes, cough Patient History Medical History Anxiety (Chronic) Depression (Chronic) GERD (gastroesophageal reflux disease) (Chronic) Herpes (Chronic) Reactive airway disease (Chronic) Surgical History History of cystoscopy (Resolved 12/04/13) History of third molar tooth extraction (Resolved) Status post right foot surgery (Resolved) Status post tubal ligation (Resolved) Family & Social History Social History: household members spouse Prior Living Arrangements House Safety & Behavioral: Feels Safe in Current Yes Environment Been Physically Hurt or No Threatened By a Person Suicidal Ideation Description None Suicide Plan Description No Plan Tobacco & Substance use: Tobacco type cigarettes Smoking Status Current some day smoker Smoking packs per day 0.5 alcohol intake frequency 0-2 drinks per day Substance Use Type marijuana Meds Home Medications and Allergies Home Medications Medication Instructions Recorded Confirmed Type meclizine 25 mg tablet 25 mg PO TID #100 tab 02/02/18 03/29/20 Rx metoclopramide HCl 10 mg tablet 10 mg PO ACHS #360 tab 05/11/19 03/29/20 Rx tolterodine 4 mg capsule,extended 4 mg PO DAILY #90 cap 05/11/19 03/29/20 Rx release 24 hr acyclovir 400 mg tablet 400 mg PO QDAY #90 tab 11/13/19 03/29/20 Rx atorvastatin 10 mg tablet 10 mg PO HS #90 tab 11/13/19 03/29/20 Rx clonazepam 1 mg tablet 1 mg PO TID #270 tab 11/13/19 03/29/20 Rx pantoprazole 40 mg tablet,delayed 40 mg PO BID #180 tab 11/13/19 03/29/20 Rx release mometasone-formoterol HFA 200 2 puff INHALATION ONCE PRN gram 01/04/20 03/29/20 History mcg-5 mcg/actuation aerosol inhaler bupropion HCl 150 mg tablet,12 hr 150 mg PO BID #180 tab 02/25/20 03/29/20 Rx sustained-release prazosin 2 mg capsule 8 mg PO QDAY #360 cap 02/25/20 03/29/20 Rx trazodone 50 mg tablet See Rx Instructions PO HS #360 tab 02/25/20 03/29/20 Rx MDD 200 mg Chantix Starting Month Box See Rx Instructions PO PER PKG DIR 03/29/20 03/29/20 History MDD 2 mg Allergies Allergy/AdvReac Type Severity Reaction Status Date / Time adhesive tape Allergy Unknown WELT Verified 03/29/20 18:10 Exam Vital Signs (past 8 hours): - 03/30/20 07:29 03/30/20 12:13 Temperature 97.0 F L 97.0 F L Pulse Rate 72 85 Respiratory Rate 16 16 Blood Pressure 126/83 134/80 Pulse Oximetry 93 93 Oxygen Delivery Method Room Air Oxygen Flow Rate 0 Narrative Exam Narrative: Afebrile vital signs are stable Patient is alert and oriented no apparent distress lying comfortably in bed HEENT: Unremarkable Neck: Supple without bruits or jugular venous distension, no thyromegaly Chest: Clear to auscultation without wheezes rhonchi or crackles but prolonged expiratory phase and slightly decreased breath sounds in the bases Cor: Regular rate and rhythm with distant S1-S2 Abdomen: Positive bowel sounds, soft, nontender, nondistended, obese, no hepatosplenomegaly Extremities: No edema, pulses intact Neurologic exam is nonfocal. Cranial nerves 2-12 are grossly intact. Romberg is negative. Strength is symmetric and equal bilateral upper and lower extremities. No changes in sensation. Objective Labs Result Diagrams: 03/30/20 05:09 03/30/20 05:09 Labs: Laboratory Results - last 24 hr 03/29/20 03/29/20 03/29/20 18:21 18:21 18:21 WBC 7.4 RBC 4.34 Hgb 14.3 Hct 40.7 MCV 93.9 MCH 33.0 MCHC 35.1 RDW 13.1 Plt Count 193 Neut % (Auto) 57.8 Lymph % (Auto) 29.0 [place] % (Auto) 10.6 Eos % (Auto) 1.7 L Baso % (Auto) 0.9 Neut # (Auto) 4300 Lymph # (Auto) 2100 [place] # (Auto) 800 Eos # (Auto) 100 Baso # (Auto) 100 PT 12.7 INR 1.1 Sodium 138 Potassium 4.1 Chloride 102 Carbon Dioxide 29 BUN 10 Creatinine 0.87 Estimated GFR > 60.0 BUN/Creatinine Ratio 11.5 Glucose 92 Calcium 9.2 Total Bilirubin 0.6 AST 20 ALT 13 Alkaline Phosphatase 122 Total Creatine Kinase < 20 L CK-MB (CK-2) TNP CK-MB (CK-2) Rel Index TNP Troponin I < 0.012 Total Protein 8.2 Albumin 4.1 Globulin 4.1 Albumin/Globulin Ratio 1.0 Triglycerides Cholesterol LDL Cholesterol, Calc HDL Cholesterol TSH Urine RBC Urine WBC Ur Squamous Epith Cells Urine Bacteria Ur Culture Indicated? COVID-19 PCR 03/29/20 03/29/20 03/30/20 19:19 21:20 05:09 WBC 6.2 RBC 4.06 Hgb 13.5 Hct 38.5 MCV 94.8 MCH 33.2 MCHC 35.0 RDW 13.6 Plt Count 166 Neut % (Auto) 51.2 Lymph % (Auto) 36.2 [place] % (Auto) 9.5 Eos % (Auto) 2.0 Baso % (Auto) 1.1 Neut # (Auto) 3200 Lymph # (Auto) 2200 [place] # (Auto) 600 Eos # (Auto) 100 Baso # (Auto) 100 PT INR Sodium Potassium Chloride Carbon Dioxide BUN Creatinine Estimated GFR BUN/Creatinine Ratio Glucose Calcium Total Bilirubin AST ALT Alkaline Phosphatase Total Creatine Kinase CK-MB (CK-2) CK-MB (CK-2) Rel Index Troponin I Total Protein Albumin Globulin Albumin/Globulin Ratio Triglycerides Cholesterol LDL Cholesterol, Calc HDL Cholesterol TSH Urine RBC None seen Urine WBC 0-1/hpf Ur Squamous Epith Cells 10-30 /hpf H Urine Bacteria Many (>30) H Ur Culture Indicated? Cult not indicated COVID-19 PCR Negative 03/30/20 03/30/20 03/30/20 05:09 05:09 05:09 WBC RBC Hgb Hct MCV MCH MCHC RDW Plt Count Neut % (Auto) Lymph % (Auto) [place] % (Auto) Eos % (Auto) Baso % (Auto) Neut # (Auto) Lymph # (Auto) [place] # (Auto) Eos # (Auto) Baso # (Auto) PT INR Sodium 139 Potassium 3.7 Chloride 105 Carbon Dioxide 30 BUN 10 Creatinine 0.82 Estimated GFR > 60.0 BUN/Creatinine Ratio 12.2 Glucose 114 H Calcium 8.9 Total Bilirubin 0.5 AST 20 ALT 13 Alkaline Phosphatase 100 Total Creatine Kinase CK-MB (CK-2) CK-MB (CK-2) Rel Index Troponin I Total Protein 7.2 Albumin 3.6 Globulin 3.6 Albumin/Globulin Ratio 1.0 Triglycerides 91 Cholesterol 124 L LDL Cholesterol, Calc 71 HDL Cholesterol 35 L TSH 2.85 Urine RBC Urine WBC Ur Squamous Epith Cells Urine Bacteria Ur Culture Indicated? COVID-19 PCR Assessment & Plan Assessment & Plan narrative: 59-year-old female admitted for possible TIA. I suspect that this more likely had to do with her vertigo or perhaps from sitting for 2-1/2 hours and then standing up in having her right upper and lower extremity be asleep. She has had no further symptoms. Her telemetry was normal. Her blood pressures were normal. She is now 48 hours after the event. We discussed that this certainly could be an atypical presentation of TIA and that we should continue to reduce her risk factors and the primary 1 would be smoking cessation. I encouraged her to continue with her efforts at smoking cessation. Also to continue on atorvastatin in to go home on a baby aspirin. Her CT angiogram of her head and neck were negative. Unfortunately we can not do the MRI because of her and permanent stimulator her back. We discussed exercise as well. Her echo results are still pending. We discussed other potential etiologies. We will discharge her home in stable condition. She will follow-up with Dr. Lindquist next week. She is encouraged to come in sooner should she have recurrent symptoms. Assessment 2. Hyperlipidemia with good control of her lipids Plan: Continue on atorvastatin Assessment 3. Anxiety and depression and PTSD Plan: We had a lengthy discussion regarding this and utility of counseling as well as exercise. She will continue on her same medications she seemed receptive to the idea of counseling and hopefully she can get set up with somebody who matches her personality. Assessment 4. Chronic back pain doing well with the stimulator Plan: Continue the same Assessment 5.: Vertigo with out obvious acute symptoms Plan will follow closely. 70 minutes was spent with the patient in discussing her case with her and her , reviewing her workup and coordinating discharge COVID-19 COVID-19 status: Negative Result date/Date tested (Pos, Neg/Pending): 03/29/20 Quality VTE Deep Vein Thrombosis/Pulmonary Embolism Present on Admission: No
--- NOTE | 2020-03-30 13:29 | CM.DANOTE ---
Addendum entered by Shasta Christopher LPN 03/30/20 14:51: DC order now noted; A check in now shows that Dr. Soares did ok pt for d/c home today and with orders to call PCP office Wednesday to set up a followup appt. BRAYDEN Sy confirms that pt left for home about 1330.accompanied by her with no concerns re the d/c expressed by the care team members. Original Note: Discharge Planning/Care Management DCP: case received, EMR reviewed. Discussed in Team Rounds. Pt is a 59 year old female who admitted last night to care of Dr. Soares: weekend coverage for [facility]. PCP: Dr. Lindquist: [facility] Admission status: OBS Payer: [facility] Pt with s/s of ? TIA after IVIG home infusion: ER physician states symptoms resolved at home. MRI was planned but reportedly cancelled as pt with metal in her back which the MRI machine at could not accommodate. ECHO and angio head/neck CT is planned for today and then Dr. Soares will review. Will be following as testing proceeds to assist with any d/c needs that may arise. CM Discharge Assessment Start: 03/30/20 13:26 Freq: Status: Active Protocol: Document 03/30/20 13:27 ITV (Rec: 03/30/20 13:29 ITV [id number]) Discharge Planning Assessment Advance Directives? No History Provided By Medical Record Prior Living Arrangements House Household Members spouse Is patient alert and oriented? Yes Review Status In Process
--- NOTE | 2020-03-30 13:33 | P.DS_ITS ---
History of Present Illness History of Present Illness Chief complaint: ALMOST PASSED OUT Narrative: This very pleasant 59-year-old female is under the primary care of Dr. anne Lindquist. She presented to the emergency room 24 hours after symptoms that were concerning for possible TIA. At the time that she presented to the Emergency room she had no symptoms and her workup in the emergency department was entirely normal. However the emergency room physician felt strongly that she was still at risk for recurrent neurologic symptoms over the next 24 hours and therefore patient was admitted to the hospital for observation and further workup. Unfortunately we were not able to complete the workup because she has an implantable stimulator in her back for chronic back pain and we were unable to do the MRI but did do a CT angiogram head and neck which was unrevealing. The patient had no further symptoms during her hospitalization. The symptoms that prompted the patient 24 hours later to seek medical care were feeling loss of control of her right upper extremity and her right lower extremity. She has a history of combined variable immunodeficiency and receives IVIG every 3 weeks. She has a home health nurse who comes to her home and infuses it. She was sitting in a large recliner for about 2-1/2 hours and she went to stand up and she got out of the recliner but felt that her right leg and arm would not work. She lunged forward and grabbed the IV pole with her left hand and was then pin wheeling around. The nurse help stabilizer and her was in another room any heard the commotion and came in and is soon as he arrived which was approximately 60 seconds later she was able to walk with his assistance. He walked around the house and then took her outside for a cigarette. She had no associated symptoms. She had no dysarthria. She had no visual changes. She had no facial asymmetry. She had no paresthesias anywhere throughout the body. She had no headache. She had no chest pain. She had no diaphoresis or shortness of breath associated with this. Her symptoms resolved quickly and she had no further symptoms but was talking to somebody 1 of her friends about what had happened and they said she should go when Nori 24 hours later she sought emergency medical care. She had labs, CT of her head and EKG which were all normal in the ER and she was admitted for further observation and workup. She has had no further symptoms since the hospitalization and is feeling good at the time that I interviewed her the following day. Past medical history: 1. Anxiety 2. Depression 3. Insomnia 4. Chronic lumbar degenerative disc disease requiring implantation of a stimulating device 1 year ago which has effectively helped her pain. 5. PTSD 6. Overactive bladder 7. Hyperlipidemia 8. Combined variable immunodeficiency 9. Tobacco abuse 10. Vertigo 11. GERD 12. Reactive airway disease Current medications are metoclopramide 10 mg q.i.d., pantoprazole 40 mg daily, bupropion SR 150 mg daily, atorvastatin, trazodone, buspirone, prazosin, Detrol, acyclovir, clonazepam 1 mg tablets and she can take it up to 3 times a day and usually takes it twice a day; just started Chantix is on her 6th day of it Allergies no known drug allergies Past surgical history: Caesarean section x1 Right foot surgery and Achilles lengthening Nerve stimulator implantation the lumbar spine Past OB history normal spontaneous vaginal delivery x1 due to ovarian cyst Healthy behaviors: Patient is currently a smoker but just started Chantix to quit again Patient does not drink alcohol Patient does not use drugs Family history: Her mom age 63 from a stroke secondary to a cerebral a neurysm she did not smoke Dad at 75 from metastatic cancer, unknown primary, he smoked and drinks Multiple family members with hypertension Patient has 6 siblings, she is 4. Social history: Patient was born and raised in [place]. 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 She is and has been with her current for 20 years and they live together in [place]. Patient has 2 children age 40s Review of systems is negative other than HPI Negative for any fevers, rashes, headaches, visual changes, cough Discharge Providers Provider Date of admission: 03/29/20 19:47 Discharge Date: 03/30/20 Primary care physician: Sai Lindquist MD Discharge provider: Erma Soares MD Summary Hospital Course Discharge Diagnosis: Possible TIA, workup negative Anxiety Depression PTSD Vertigo Immuno deficiency Hospital Course: Patient admitted to the hospital for possible TIA symptoms that occurred 24 hours prior to admit. Patient was maintained on her outpatient medications monitored overnight. Echo was done and is pending at the time of discharge. CT angiogram of head and neck showed did not show any significant abnormalities. Telemetry showed no arrhythmia. Labs were normal. Patient had no recurrent symptoms. Patient was discharged home on day 2 on her home medications. She will follow-up with her PCP Dr. Lindquist next week. She return if she has recurrent symptoms Status at Discharge Cognitive/behavioral status at discharge: oriented and at baseline, oriented Functional status at discharge: independent ambulation Overall status at discharge: patient is back to baseline Exam Vital Signs (past 8 hours): - 03/30/20 07:29 03/30/20 12:13 Temperature 97.0 F L 97.0 F L Pulse Rate 72 85 Respiratory Rate 16 16 Blood Pressure 126/83 134/80 Pulse Oximetry 93 93 Oxygen Delivery Method Room Air Oxygen Flow Rate 0 Narrative Exam Narrative: Afebrile vital signs are stable HEENT unremarkable Neck supple Chest clear to auscultation Cor regular rate and rhythm without murmur Abdomen positive bowel sounds, soft Neurologic exam nonfocal Objective Labs Result Diagrams: 03/30/20 05:09 03/30/20 05:09 Labs: Laboratory Results - last 24 hr 03/29/20 03/29/20 03/29/20 18:21 18:21 18:21 WBC 7.4 RBC 4.34 Hgb 14.3 Hct 40.7 MCV 93.9 MCH 33.0 MCHC 35.1 RDW 13.1 Plt Count 193 Neut % (Auto) 57.8 Lymph % (Auto) 29.0 [place] % (Auto) 10.6 Eos % (Auto) 1.7 L Baso % (Auto) 0.9 Neut # (Auto) 4300 Lymph # (Auto) 2100 [place] # (Auto) 800 Eos # (Auto) 100 Baso # (Auto) 100 PT 12.7 INR 1.1 Sodium 138 Potassium 4.1 Chloride 102 Carbon Dioxide 29 BUN 10 Creatinine 0.87 Estimated GFR > 60.0 BUN/Creatinine Ratio 11.5 Glucose 92 Calcium 9.2 Total Bilirubin 0.6 AST 20 ALT 13 Alkaline Phosphatase 122 Total Creatine Kinase < 20 L CK-MB (CK-2) TNP CK-MB (CK-2) Rel Index TNP Troponin I < 0.012 Total Protein 8.2 Albumin 4.1 Globulin 4.1 Albumin/Globulin Ratio 1.0 Triglycerides Cholesterol LDL Cholesterol, Calc HDL Cholesterol TSH Urine RBC Urine WBC Ur Squamous Epith Cells Urine Bacteria Ur Culture Indicated? COVID-19 PCR 03/29/20 03/29/20 03/30/20 19:19 21:20 05:09 WBC 6.2 RBC 4.06 Hgb 13.5 Hct 38.5 MCV 94.8 MCH 33.2 MCHC 35.0 RDW 13.6 Plt Count 166 Neut % (Auto) 51.2 Lymph % (Auto) 36.2 [place] % (Auto) 9.5 Eos % (Auto) 2.0 Baso % (Auto) 1.1 Neut # (Auto) 3200 Lymph # (Auto) 2200 [place] # (Auto) 600 Eos # (Auto) 100 Baso # (Auto) 100 PT INR Sodium Potassium Chloride Carbon Dioxide BUN Creatinine Estimated GFR BUN/Creatinine Ratio Glucose Calcium Total Bilirubin AST ALT Alkaline Phosphatase Total Creatine Kinase CK-MB (CK-2) CK-MB (CK-2) Rel Index Troponin I Total Protein Albumin Globulin Albumin/Globulin Ratio Triglycerides Cholesterol LDL Cholesterol, Calc HDL Cholesterol TSH Urine RBC None seen Urine WBC 0-1/hpf Ur Squamous Epith Cells 10-30 /hpf H Urine Bacteria Many (>30) H Ur Culture Indicated? Cult not indicated COVID-19 PCR Negative 03/30/20 03/30/20 03/30/20 05:09 05:09 05:09 WBC RBC Hgb Hct MCV MCH MCHC RDW Plt Count Neut % (Auto) Lymph % (Auto) [place] % (Auto) Eos % (Auto) Baso % (Auto) Neut # (Auto) Lymph # (Auto) [place] # (Auto) Eos # (Auto) Baso # (Auto) PT INR Sodium 139 Potassium 3.7 Chloride 105 Carbon Dioxide 30 BUN 10 Creatinine 0.82 Estimated GFR > 60.0 BUN/Creatinine Ratio 12.2 Glucose 114 H Calcium 8.9 Total Bilirubin 0.5 AST 20 ALT 13 Alkaline Phosphatase 100 Total Creatine Kinase CK-MB (CK-2) CK-MB (CK-2) Rel Index Troponin I Total Protein 7.2 Albumin 3.6 Globulin 3.6 Albumin/Globulin Ratio 1.0 Triglycerides 91 Cholesterol 124 L LDL Cholesterol, Calc 71 HDL Cholesterol 35 L TSH 2.85 Urine RBC Urine WBC Ur Squamous Epith Cells Urine Bacteria Ur Culture Indicated? COVID-19 PCR Discharge Assessment & Plan Assessment and Plan Assessment: Possible TIA with negative workup in the hospital Vertigo PTSD, anxiety, depression Chronic degenerative joint disease and disc disease in lumbar spine Tobacco abuse Plan of Treatment: Discharge home on outpatient medications Follow-up with Dr. Lindquist next week to discuss echo and hospitalization Continue with efforts at smoking cessation Return to hospital if recurrent symptoms Discharge Plan Discharge Plan Patient Disposition: Home Discharge orders & Medications Prescriptions: Continued metoclopramide HCl 10 mg tablet 10 mg PO ACHS Qty: 360 RF: 2 tolterodine [Detrol LA] 4 mg capsule,extended release 24hr 4 mg PO DAILY Qty: 90 RF: 3 acyclovir 400 mg tablet 400 mg PO QDAY Qty: 90 RF: 1 atorvastatin [Lipitor] 10 mg tablet 10 mg PO HS Qty: 90 RF: 3 pantoprazole [Protonix] 40 mg tablet,delayed release (DR/EC) 40 mg PO BID Qty: 180 RF: 0 clonazepam [Klonopin] 1 mg tablet 1 mg PO TID Qty: 270 RF: 0 bupropion HCl [Wellbutrin SR] 150 mg tablet sustained-release 12 hr 150 mg PO BID Qty: 180 RF: 0 prazosin 2 mg capsule 8 mg PO QDAY Qty: 360 RF: 0 trazodone 50 mg tablet See Rx Instructions PO HS MDD 200 mg Qty: 360 RF: 0 Dulera 200-5 mcg/actuation HFA aerosol inhaler 2 puff INHALATION ONCE PRN (Reason: asthma) RF: 0 meclizine 25 mg tablet 25 mg PO TID Qty: 100 RF: 0 Chantix Starting Month Box 0.5 mg (11)- 1 mg (42) tablets,dose pack See Rx Instructions PO PER PKG DIR MDD 2 mg RF: 0 Follow up/Referrals: Sai Lindquist MD [Primary Care Provider] - 04/03/20 (needs follow up from hospital) Diet/Activity/Treatments Diet: Low-cholesterol Visit Report/Discharge Packet Instructions: Transient Ischemic Attack, DI for Transient Ischemic Attack, How to Prevent Falls Discharge Data Primary Care Provider: Sai Lnidquist Attending Provider: Erma Soares Admit Date/Time: 03/29/20 19:47 Quality VTE Deep Vein Thrombosis/Pulmonary Embolism Present on Admission: No
--- NOTE | 2020-03-30 13:56 | PC.NURSE ---
Day shift: Paperwork signed and all questions answered. No new MD scripts. Pt has all personal belongings. Taken to car in [place] by this medical technical writer. Pt's spouse will drive them home. Pt instructed to call her MD on to make f/u appointment.
== END 2020-03-30 13:58 | disposition home or self-care (01) ==
LOC: ED 19:29 → AC 19:48
PROVIDERS: Admitting Provider Family Medicine; Emergency Provider Emergency Medicine; Family Provider Family Medicine; PCP Family Medicine; Referring Provider Emergency Medicine; Visit Provider Family Medicine
DX: R42 Dizziness and giddiness (principal); D83.9 Common variable immunodeficiency, unspecified; E78.5 Hyperlipidemia, unspecified; K21.9 Gastro-esophageal reflux disease without esophagitis; F41.9 Anxiety disorder, unspecified; J45.909 Unspecified asthma, uncomplicated; F32.9 Major depressive disorder, single episode, unspecified; F43.10 Post-traumatic stress disorder, unspecified; Z72.0 Tobacco use; Z11.59 Encounter for screening for other viral diseases; Z23 Encounter for immunization
CPT/HCPCS: 36415; 70450; 70496; 70498; 80053; 80061; 81015; 82550; 84443; 84484; 85025; 85610; 87635; 90471; 90656; 93005; 93306; 96360; 96361; 99284; G0378; Q2038; Q9957; Q9967

== ENCOUNTER 2020-12-14 14:20 | Emergency (ER) | payer OTHER, SELFPAY ==
[2020-12-14 14:32] VITALS: BP 127/61; PULSE 88; RESP 18; TEMP 35.9; O2SAT 95; BMI 36.0
[2020-12-14] MEDS: ACETAMINOPHEN 325 MG TABLET PO (14:48)
[2020-12-14] MEDS: IBUPROFEN 400 MG TABLET PO (14:48)
[2020-12-14] MEDS: BACITRACIN OINT 0.9 GM PCKT 10 APPLIC TOP (14:48)
--- NOTE | 2020-12-14 14:58 | PC.NURSE ---
diffuse road rash from wrist to elbow. bleeding controlled in ED. bacitracin applied, nonstick pad applied and wrapped with roll gauze. coban applied over dressing to keep in place.
--- NOTE | 2020-12-14 15:49 | ED.SKABFB ---
HPI - Skin/Abscess/Foreign Bdy General Chief complaint: Skin/Abscess/Foreign Body Stated complaint: ROAD RASH AFTER FALL Time Seen by Provider: 12/14/20 14:24 Source: patient Mode of arrival: Family Vehicle Limitations: no limitations History of Present Illness HPI narrative: 60-year-old woman presents after going to sit down in her wheelchair missing wheelchair entirely and landing with her left arm brushing against the side of a rock. She has a large abrasion that does not need any suturing but is tender to the underside of her forearm there is no bony injury. She has no other specific complaints or concerns Related Data Previous Rx's Medication Instructions Recorded acyclovir 400 mg tablet 400 mg PO QDAY #90 tab 05/29/20 atorvastatin 10 mg tablet 10 mg PO HS #90 tab 05/29/20 bupropion HCl 150 mg tablet,12 hr 150 mg PO BID #180 tab 05/29/20 sustained-release meclizine 25 mg tablet 25 mg PO TID #100 tab 05/29/20 metoclopramide HCl 10 mg tablet 10 mg PO ACHS #360 tab 05/29/20 mometasone-formoterol HFA 200 2 puff INHALATION ONCE PRN #8.8 g 05/29/20 mcg-5 mcg/actuation aerosol inhaler pantoprazole 40 mg tablet,delayed 40 mg PO BID #180 tab 05/29/20 release prazosin 2 mg capsule 8 mg PO QDAY #360 cap 05/29/20 tolterodine 4 mg capsule,extended 4 mg PO DAILY #90 cap 05/29/20 release 24 hr trazodone 50 mg tablet See Rx Instructions PO HS #360 tab 05/29/20 MDD 200 mg miscellaneous medical supply #1 ea 06/13/20 walker #1 ea 06/13/20 clonazepam 1 mg tablet 1 mg PO TID #270 tab 08/23/20 cephalexin 500 mg PO TID 5 Days #15 cap 12/14/20 Allergies Allergy/AdvReac Type Severity Reaction Status Date / Time adhesive tape Allergy Unknown WELT Verified 12/14/20 14:39 Review of Systems Review of Systems Narrative: Remainder of complete review of systems is otherwise unremarkable except for that included in the HPI. Patient History Medical History Anxiety Common variable immunodeficiency (12/13/13) Depression GERD (gastroesophageal reflux disease) Herpes Reactive airway disease Surgical History History of cystoscopy (12/04/13) History of third molar tooth extraction Status post right foot surgery Status post tubal ligation Social History household members: spouse Smoking Status: Current every day smoker Tobacco: How many years used: 45 quit status: considering quitting alcohol intake: never substance use type: does not use Smoking Status: Current every day smoker tobacco type: cigarettes alcohol intake frequency: 0-2 drinks per day Substance Use Type: marijuana Exam Narrative Exam Narrative: General: Alert appropriate in no acute distress Respiratory: Able to speak in full sentences, no obvious respiratory distress Skin: No obvious rashes, warm and dry Neurologic: Grossly intact no obvious asymmetries or abnormalities Psych: appropriate insight and affect, cooperative Extremity: Her left forearm has a large abrasion over the entire ventral surface of the forearm. She is neurovascularly intact distally. There is no bony tenderness to the arm elbow or wrist. Initial Vital Signs Initial Vital Signs: Vital Signs Temperature 96.7 F L 12/14/20 14:32 Pulse Rate 88 12/14/20 14:32 Respiratory Rate 18 12/14/20 14:32 Blood Pressure 127/61 12/14/20 14:32 Pulse Oximetry 95 12/14/20 14:32 Course Orders Ordered: Discontinued Medications Acetaminophen (Acetaminophen 325 Mg Tablet) 325 mg PO NOW ONE Stop: 12/14/20 14:33 Last Admin: 12/14/20 14:48 Dose: 325 mg Documented by: JACQUIE Bacitracin (Bacitracin Oint 0.9 Gm Pckt) 10 applic TOP NOW ONE Stop: 12/14/20 14:33 Last Admin: 12/14/20 14:48 Dose: 10 applic Documented by: JACQUIE Ibuprofen (Ibuprofen 400 Mg Tablet) 400 mg PO NOW ONE Stop: 12/14/20 14:33 Last Admin: 12/14/20 14:48 Dose: 400 mg Documented by: JACQUIE Vital Signs Vital signs: Vital Signs - 8 hr 12/14/20 14:32 Temperature 96.7 F L Pulse Rate 88 Respiratory Rate 18 Blood Pressure 127/61 Pulse Oximetry 95 MDM - Skin/Abscess/Foreign Bdy Medical Records Attestation: I reviewed the patient's medical records. MDM Narrative Medical decision making narrative: Large abrasion after mechanical fall. Because of her common variable immunodeficiency she is at increased risk of infection. The wound was cleaned and then dressed with bacitracin and covering. Pain was much better controlled once the bacitracin and a bit of support to hold the dressing in place was applied. Because she is at risk for increased infection she is given a prescription for cephalexin to fill should she develop signs or symptoms of infection. Recommended daily wound care with continued antibiotic ointment use. Questions are answered and she is safe for home discharge Discharge Plan Departure Patient Disposition: Home Clinical Impression: Abrasion forearm Qualifiers: Encounter type: initial encounter Laterality: left Qualified Code(s): S50.812A - Abrasion of left forearm, initial encounter Instructions: DI for Abrasion Activity Restrictions/Additional Instructions: Thank you for coming in today I am sorry that you have such an impressive abrasion to your entire forearm. The wound was cleaned and dressed with bacitracin. Because you are at increased risk for infection I am going to give you a prescription for Keflex. This does not need to be filled unless you are concerned that the wound is becoming infected. In the meantime, please use antibiotic ointment to keep the wound moist and a dressing over the area. I would recommend cleaning with warm water daily and making sure that any of the accumulated debris is cleaned off. If you have worsening symptoms or concerns, please feel free to return to the ER Prescriptions: New cephalexin 500 mg capsule 500 mg PO TID 5 Days Qty: 15 RF: 0 No Action acyclovir 400 mg tablet 400 mg PO QDAY Qty: 90 RF: 3 atorvastatin [Lipitor] 10 mg tablet 10 mg PO HS Qty: 90 RF: 3 bupropion HCl [Wellbutrin SR] 150 mg tablet sustained-release 12 hr 150 mg PO BID Qty: 180 RF: 3 meclizine 25 mg tablet 25 mg PO TID Qty: 100 RF: 5 metoclopramide HCl 10 mg tablet 10 mg PO ACHS Qty: 360 RF: 2 Dulera 200-5 mcg/actuation HFA aerosol inhaler 2 puff INHALATION ONCE PRN (Reason: asthma) Qty: 8.8 RF: 0 pantoprazole [Protonix] 40 mg tablet,delayed release (DR/EC) 40 mg PO BID Qty: 180 RF: 3 prazosin 2 mg capsule 8 mg PO QDAY Qty: 360 RF: 3 tolterodine [Detrol LA] 4 mg capsule,extended release 24hr 4 mg PO DAILY Qty: 90 RF: 3 trazodone 50 mg tablet See Rx Instructions PO HS MDD 200 mg Qty: 360 RF: 3 (DME) miscellaneous medical supply Misc See Rx Instructions .ROUTE .MEDSUPPLY Qty: 1 RF: 0 (DME) walker Misc See Rx Instructions .ROUTE .MEDSUPPLY Qty: 1 RF: 0 clonazepam [Klonopin] 1 mg tablet 1 mg PO TID Qty: 270 RF: 0 Referrals: Kingston Hunter MD [Primary Care Provider] -
[2020-12-14 16:05] VITALS: BP 118/70; PULSE 72; RESP 16; O2SAT 94
== END 2020-12-14 16:09 | disposition home or self-care (01) ==
PROVIDERS: Emergency Provider Emergency Medicine; Family Provider Family Medicine; PCP Family Medicine
DX: S50.812A Abrasion of left forearm, initial encounter (principal); W19.XXXA Unspecified fall, initial encounter
CPT/HCPCS: 99282; 99283

== ENCOUNTER → 2021-06-11 14:46 | Outpatient (CLI) | payer OTHER, SELFPAY ==
--- NOTE | 2021-06-11 14:47 | DI.MG.S_ITS ---
BILATERAL DIGITAL SCREENING MAMMOGRAM 3D/2D WITH CAD: 06/11/2021 CLINICAL: Routine screening. Family history of breast cancer. Comparison is made to exams dated: 11/13/2019 mammogram, 08/21/2016 mammogram, and 03/15/2015 mammogram - [facility]. The tissue of both breasts is heterogeneously dense. This may lower the sensitivity of mammography. Current study was also evaluated with a Computer Aided Detection (CAD) system. There are benign calcifications in both breasts. No significant masses, calcifications, or other findings are seen in either breast. There has been no significant interval change. IMPRESSION: BENIGN There is no mammographic evidence of malignancy. A 1 year screening mammogram is recommended. This exam was interpreted at Station ID: [id number]. NOTE: For mammograms, a report in lay terms will be sent to the patient. Approximately 15% of breast malignancies will not be visualized mammographically. In the management of a palpable breast mass, a negative mammogram must not discourage biopsy of a clinically suspicious lesion. Electronically Signed By: Rob Cool M.D., jr/tereza:06/11/2021 15:20:07 copy to: Kun Skelton letter sent: Normal Exam ACR BI-RADS Category 2: Benign Finding(s) 3342F
== END ==
PROVIDERS: Family Provider Family Medicine; PCP Family Medicine; Referring Provider Family Medicine; Visit Provider Family Medicine
DX: Z12.31 Encounter for screening mammogram for malignant neoplasm of breast (principal); Z80.3 Family history of malignant neoplasm of breast
CPT/HCPCS: 77063; 77067

== ENCOUNTER → 2021-10-29 12:47 | Outpatient (CLI) | payer OTHER, SELFPAY ==
[2021-10-29 14:15] LABS: COVID19 -Nasal RAPID Negative (Negative)
== END ==
PROVIDERS: Family Provider Family Medicine; PCP Family Medicine; Visit Provider Surgery
DX: Z01.812 Encounter for preprocedural laboratory examination (principal); Z20.822 Contact with and (suspected) exposure to COVID-19
CPT/HCPCS: 87635; C9803

== ENCOUNTER 2021-10-30 12:24 | Day surgery (SDC) | payer OTHER, SELFPAY ==
--- NOTE | 2021-10-30 | PATH_ITS ---
[facility] Accession Number: [id number] No. of containers..03 Tissue . 01 Material submitted: . PART A: sigmoid colon - SIGMOID POLYPS PART B: rectum - RECTAL POLYPS PART C: rectum - DISTAL RECTAL POLYP . 02 Diagnosis: A. Sigmoid Colon, Polyps, Biopsies: Hyperplastic polyp, one fragment. . B. Rectum, Polyps, Biopsies: Hyperplastic polyps. . C. Distal Rectum, Polyp, Biopsy: Benign fibroepithelial polyp (skin tag). No evidence of neoplasia. [facility] 11/04/2021 1421 Local . 02 Comment: . . 02 Electronically signed: . Rosa Echeverria MD, Pathologist NPI- [id number] . 01 Gross description: . Part A: SIGMOID POLYPS: Received in formalin is 1 fragment(s) of mariscal, soft tissue measuring 0.3 x 0.3 x 0.2 cm submitted entirely in 1 cassette(s) Part B: RECTAL POLYPS: Received in formalin are 2 fragment(s) of mariscal, soft tissue measuring 0.3 x 0.3 x 0.3 cm to 0.4 x 0.3 x 0.2 cm submitted entirely in 1 cassette(s) Part C: DISTAL RECTAL POLYP: Received in formalin is 1 fragment(s) of mariscal, soft tissue measuring 0.7 x 0.4 x 0.4 cm submitted entirely in 1 cassette(s) /[facility] 10/31/2021 2212 Local . 02 Pathologist provided ICD-10: K63.5 . 02 CPT . 228134, [id number], [id number] Specimen Comment: A courtesy copy of this report has been sent to [phone] Performed at: 01 [facility] [address] [id number] MD Jameel Griffiths MD Phone: [phone] Performed at: 02 [facility] [id number] [place] [id number] MD Rosa Echeverria MD Phone: [phone]
[2021-10-30 12:45] VITALS: BP 134/78; PULSE 88; RESP 16; TEMP 36.8; O2SAT 97
[2021-10-30 12:51] VITALS: BMI 32.2
[2021-10-30] MEDS: LACTATED RINGERS 1,000 ML 42 ML IV (13:21)
--- NOTE | 2021-10-30 13:43 | PM.HP.1 ---
History of Present Illness History of Present Illness Date Patient Seen: 10/30/21 Time Patient Seen: 13:43 Chief complaint: SDC Narrative: 61-year-old woman who had a colonoscopy about 10 years ago. Patient History Medical History Anxiety Common variable immunodeficiency (12/13/13) Depression GERD (gastroesophageal reflux disease) Herpes Reactive airway disease Surgical History History of cystoscopy (12/04/13) History of third molar tooth extraction Status post right foot surgery Status post tubal ligation Family & Social History Social History: household members spouse Tobacco & Substance use: Tobacco type cigarettes Smoking Status Current every day smoker Smoking packs per day 1 alcohol intake never alcohol intake frequency 0-2 drinks per day Substance Use Type marijuana Meds Home Medications and Allergies Home Medications Medication Instructions Recorded Confirmed Type metoclopramide HCl 10 mg tablet 10 mg PO ACHS #360 tab 05/29/20 10/30/21 Rx mometasone-formoterol HFA 200 2 puff INHALATION ONCE PRN #8.8 g 05/29/20 10/30/21 Rx mcg-5 mcg/actuation aerosol inhaler (Dulera) acyclovir 400 mg tablet 400 mg PO QDAY #90 tab 05/26/21 10/30/21 Rx atorvastatin 10 mg tablet (Lipitor) 10 mg PO HS #90 tab 05/26/21 10/30/21 Rx pantoprazole 40 mg tablet,delayed 40 mg PO BID #180 tab 05/26/21 10/30/21 Rx release (Protonix) prazosin 2 mg capsule 8 mg PO QDAY #360 cap 05/26/21 10/30/21 Rx tolterodine 4 mg capsule,extended 4 mg PO DAILY #90 cap 05/26/21 10/30/21 Rx release 24 hr (Detrol LA) trazodone 50 mg tablet See Rx Instructions PO HS #360 tab 05/26/21 10/30/21 Rx MDD 200 mg bupropion HCl 150 mg tablet,12 hr 150 mg PO BID #180 tab 09/05/21 10/30/21 Rx sustained-release (Wellbutrin SR) clonazepam 1 mg tablet (Klonopin) 1 mg PO TID #270 tab 09/05/21 10/30/21 Rx aspirin 81 mg capsule 81 mg PO DAILY 10/30/21 10/30/21 History Allergies Allergy/AdvReac Type Severity Reaction Status Date / Time adhesive tape Allergy Unknown WELT Verified 10/30/21 12:42 tree and shrub pollen Allergy Unknown Verified 10/30/21 12:43 Exam Vital Signs (past 8 hours): - 10/30/21 12:45 Temperature 98.2 F Pulse Rate 88 Respiratory Rate 16 Blood Pressure 134/78 Pulse Oximetry 97 Oxygen Delivery Method Room Air Const General: healthy appearing Resp Effort & Inspection: normal respiratory effort GI Palpation: soft Assessment & Plan Assessment and plan (1) Colon cancer screening: Status: Acute Plan We reviewed the risks and benefits of colon cancer screening and she would like to proceed. COVID-19 COVID-19 status: Negative Result date/Date tested (Pos, Neg/Pending): 10/29/21 Time Spent With Patient Critical Care time: I spent a total of [] minutes of critical care time on this patient's care today; this time is exclusive of procedural time.
[2021-10-30] MEDS: fentaNYL 250 MCG/5 ML INJ IV (14:23)
[2021-10-30] MEDS: MIDAZOLAM 5 MG/5 ML VIAL 9 MG IV (14:46)
--- NOTE | 2021-10-30 15:05 | PM.OP.COLON ---
Operative Date/Time/Diagnoses Date of procedure: 10/30/21 Time of procedure: 15:05 Pre-op diagnosis: Colon cancer screening Post-op diagnosis: same Procedure Notes Procedure in detail: Surgeon: Timo Matthews MD Procedure: The patient was brought to the endoscopy suite, placed in left lateral decubitus position. The patient was connected to monitoring devices. A time-out was performed. Sedation was administered. Once the patient was adequately sedated, a digital rectal exam was performed and was normal. The scope was then inserted and advanced to the cecum where the appendiceal orifice was identified and photographed. The scope was then slowly withdrawn over greater than 6 minutes. The prep was poor but was able to be adequately cleared with irrigation. Mucosa was thoroughly inspected. There were some small polyps in the sigmoid colon which were removed with cold Jumbo forceps. These polyps were about 4 mm. There were additional small polyps in the rectum which were also removed with cold Jumbo forceps. The scope was retroflexed in the rectum. There was a large polypoid lesion at the distal rectum which could have been a polyp or inverted hemorrhoid. It was removed with a hot snare. The scope was straightened and removed. The patient was awakened and brought to recovery. Versed: 10 mg Fentanyl: 275 mcg EBL: 5 mL Findings: Small polyps in the sigmoid and rectum and a pedunculated polypoid lesion in the distal rectum. Scope withdrawal time: 45 Sedation minutes: 65 Post-procedure Recommendations: Will call with biopsy results Disposition: PACU
[2021-10-30 15:11] VITALS: BP 118/57; PULSE 68; RESP 22; TEMP 36.2; O2SAT 95
[2021-10-30 15:16] VITALS: BP 117/54; PULSE 62; PULSE 68; RESP 10; RESP 20; O2SAT 96; O2SAT 97
[2021-10-30 15:23] VITALS: BP 103/58; PULSE 85; RESP 15; TEMP 36.7; O2SAT 98
[2021-10-30 15:33] VITALS: BP 115/52; PULSE 74; RESP 18; O2SAT 97
[2021-10-30 15:45] VITALS: BP 128/85; PULSE 84; RESP 18; TEMP 36.8; O2SAT 97
== END 2021-10-30 15:55 | disposition home or self-care (01) ==
PROVIDERS: Family Provider Family Medicine; PCP Family Medicine; Referring Provider Surgery; Visit Provider Surgery
PROC: 0DJD8ZZ Inspection of Lower Intestinal Tract, Via Natural or Artificial Opening Endoscopic (ICD-10-PCS; CPT 45378; principal; 2021-10-30 13:45)
DX: Z12.11 Encounter for screening for malignant neoplasm of colon (principal); K63.5 Polyp of colon; K64.4 Residual hemorrhoidal skin tags
CPT/HCPCS: 45385; 45380; 99152; 99153; J2250; J3010

== ENCOUNTER → 2021-12-30 15:12 | Outpatient (CLI) | payer OTHER, SELFPAY ==
--- NOTE | 2021-12-30 15:13 | DI.CT.S_ITS ---
PROCEDURE: CT LUMBAR SPINE WO CON INDICATIONS: chronic lumbar spine pain with bilateral foot numbness TECHNIQUE: Noncontrast 3 mm thick sections acquired from the T12 level to the sacrum. Sagittal and coronal reformats were constructed. For radiation dose reduction, the following was used: automated exposure control. COMPARISON: None. FINDINGS: Image quality: Excellent. Bones: There is normal bony alignment. There are 6 non rib-bearing lumbar vertebral bodies. The highest non rib-bearing vertebral body will be referred to as T12. No acute vertebral body compression fractures. No suspicious lytic or blastic bony lesions. No pars defects. T12-L1: Small posterior osteophyte. No canal stenosis. No significant foraminal stenosis. L1-L2: No canal stenosis or foraminal stenosis. L2-L3: Disc bulge Facet hypertrophy. Mild canal stenosis. [id number] bilateral foraminal stenosis. L3-L4: Bilateral facet hypertrophy. No significant canal stenosis. [id number] bilateral foraminal stenosis. L4-L5: Disc bulge. Facet hypertrophy. Mild canal stenosis. Moderate bilateral foraminal stenosis. L5-S1: Bilateral facet hypertrophy. Mild canal stenosis. Mild bilateral foraminal stenosis. Soft tissues: No retroperitoneal masses or hematomas. Visualized aorta is normal in caliber. Dorsal column stimulator. There is a 4 cm cystic lesion of the left adnexa. IMPRESSION: 1. Please note that there are 6 non rib-bearing lumbar vertebral bodies, and that the highest non rib-bearing lumbar vertebral body is labeled as T12. Should surgery be contemplated, careful correlation for correct surgical level is necessary. 2. Multilevel facet arthropathy. 3. Mild canal stenosis at L2-L3, L4-L5, and L5-S1. 4. Incidental 4 cm cystic lesion of the left adnexa. Potential etiologies include benign etiologies and malignant etiologies. Comment: Recommend further evaluation of the cystic lesion of the left adnexa utilizing pelvic ultrasound. Dictated by: Donnell Cleveland M.D. on 12/30/2021 at 17:21 Approved by: Donnell Cleveland M.D. on 12/30/2021 at 17:28
== END ==
PROVIDERS: Family Provider Family Medicine; PCP Family Medicine; Referring Provider Family Medicine; Visit Provider Family Medicine
DX: M54.50 Low back pain, unspecified (principal); G89.29 Other chronic pain; R20.0 Anesthesia of skin; R20.2 Paresthesia of skin; M47.816 Spondylosis without myelopathy or radiculopathy, lumbar region; M48.061 Spinal stenosis, lumbar region without neurogenic claudication; M48.07 Spinal stenosis, lumbosacral region
CPT/HCPCS: 72131

== ENCOUNTER → 2022-01-14 12:07 | Outpatient (CLI) | payer OTHER, SELFPAY ==
[2022-01-14 13:31] LABS: Add Manual Diff / Slide Review NO; Basophils Absolute Auto 0 /uL (0-100); Basophils Percent Auto 0.5 % (0-2); Eosinophils Absolute Auto 0 /uL (0-450); Eosinophils Percent Auto 0.4 % (2-4); Hematocrit 42.9 % (36-46); Hemoglobin 14.9 g/dL (12.0-16.0); Lymphocytes Absolute Auto 1700 /uL (1100-4500); Lymphocytes Percent Auto 24.6 % (25-40); Mean Corpuscular HGB Conc 34.8 % (30-36); Mean Corpuscular Hemoglobin 32.7 PG (26-34); Mean Corpuscular Volume 93.8 fL (80-100); Monocytes Absolute Auto 700 /uL (0-900); Monocytes Percent Auto 9.4 % (3-14); Neutrophils Absolute Auto 4500 /uL (1500-7000); Neutrophils Percent Auto 65.1 % (50-75); Platelet Count 190 X10^3/uL (150-400); Red Blood Cell Count 4.57 X10^6/uL (4.0-5.2); Red Cell Distribution Width 13.6 % (11.6-14.8)
[2022-01-14 13:57] LABS: Alanine Aminotransferase 11 IU/L (<35); Albumin 4.3 g/dL (3.5-5.0); Albumin Globulin Ratio 1.2 (1.0-2.8); Alkaline Phosphatase 105 U/L (38-126); Aspartate Aminotransferase 22 IU/L (14-36); BUN Creatinine Ratio 11.7 (6-22); Bilirubin Total 0.5 mg/dL (0.2-1.3); Blood Urea Nitrogen 13 mg/dL (7-17); Calcium 9.7 mg/dL (8.4-10.2); Carbon Dioxide 34 mmol/L (22-32); Chloride 97 mmol/L (98-107); Cholesterol 184 mg/dL (140-199); Estimated Glomerular Filt Rate 57 mL/min (>60); Globulin 3.5 g/dL (1.7-4.1); Glucose 101 mg/dL (80-110); HDL Cholesterol 55 mg/dL (40-60); HEMOLYSIS < 15 (0-50); LDL Cholesterol Calculated 106 mg/dL (<100); Potassium 5.3 mmol/L (3.4-5.1); Sodium 138 mmol/L (137-145); Total Protein 7.8 g/dL (6.3-8.2); Triglycerides 113 mg/dL (35-150)
[2022-01-14 14:24] LABS: TSH w/ Reflex to FT4 2.12 uIU/mL (0.47-4.68)
== END ==
PROVIDERS: Family Provider Family Medicine; PCP Family Medicine; Referring Provider Family Medicine; Visit Provider Family Medicine
DX: D83.9 Common variable immunodeficiency, unspecified (principal); R39.15 Urgency of urination; R32 Unspecified urinary incontinence; M79.671 Pain in right foot; M79.672 Pain in left foot; M54.50 Low back pain, unspecified; G89.29 Other chronic pain; R20.0 Anesthesia of skin; R20.2 Paresthesia of skin
CPT/HCPCS: 36415; 80053; 80061; 84443; 85025

== ENCOUNTER → 2022-01-22 11:51 | Outpatient (CLI) | payer OTHER, SELFPAY ==
--- NOTE | 2022-01-22 11:53 | DI.RAD.S_ITS ---
PROCEDURE: XR CHEST 2V INDICATIONS: chest congestion, wheezing TECHNIQUE: 2 views of the chest were acquired. COMPARISON: [facility], , CHEST 2 VIEW, 04/17/2017, 10:13. FINDINGS: Surgical changes and devices: Well-positioned thoracic epidural stimulator with associated tunneled lead Lungs and pleura: Lungs are clear. No pleural effusions or pneumothorax. Mediastinum: Mediastinal contours are normal. Heart size is normal. Bones and chest wall: No suspicious bony abnormalities. Soft tissues appear unremarkable. IMPRESSION: Epidural stimulator lead noted in the lower thoracic spine No acute cardiopulmonary findings Approved by: Guille Lewis M.D. on 01/22/2022 at 16:36
[2022-01-22 13:53] LABS: Blood Urea Nitrogen 13 mg/dL (7-17); Calcium 9.1 mg/dL (8.4-10.2); Carbon Dioxide 33 mmol/L (22-32); Chloride 99 mmol/L (98-107); Estimated Glomerular Filt Rate > 60 mL/min (>60); Glucose 105 mg/dL (80-110); HEMOLYSIS 18 (0-50); Sodium 138 mmol/L (137-145)
[2022-01-22 17:15] LABS: Alanine Aminotransferase 20 IU/L (<35); Albumin 4.3 g/dL (3.5-5.0); Albumin Globulin Ratio 1.7 (1.0-2.8); Alkaline Phosphatase 77 U/L (38-126); Aspartate Aminotransferase 32 IU/L (14-36); BUN Creatinine Ratio 13.7 (6-22); Bilirubin Total 0.4 mg/dL (0.2-1.3); Blood Urea Nitrogen 13 mg/dL (7-17); Carbon Dioxide 28 mmol/L (22-32); Chloride 104 mmol/L (98-107); Estimated Glomerular Filt Rate > 60 mL/min (>60); Globulin 2.6 g/dL (1.7-4.1); Glucose 144 mg/dL (80-110); HEMOLYSIS 32 (0-50); Potassium 4.4 mmol/L (3.4-5.1); Sodium 141 mmol/L (137-145); Total Protein 6.9 g/dL (6.3-8.2)
== END ==
PROVIDERS: Family Provider Family Medicine; PCP Family Medicine; Referring Provider Urology; Visit Provider Family Medicine
DX: R06.02 Shortness of breath (principal); R06.2 Wheezing; D83.9 Common variable immunodeficiency, unspecified; R79.81 Abnormal blood-gas level; R31.21 Asymptomatic microscopic hematuria; E87.5 Hyperkalemia; R39.15 Urgency of urination; N95.2 Postmenopausal atrophic vaginitis; M54.50 Low back pain, unspecified; G89.29 Other chronic pain; F17.200 Nicotine dependence, unspecified, uncomplicated; Z96.82 Presence of neurostimulator
CPT/HCPCS: 36415; 71046; 80048; 80053; 81002

== ENCOUNTER → 2022-02-03 14:14 | Outpatient (CLI) | payer OTHER, SELFPAY ==
--- NOTE | 2022-02-03 14:16 | DI.CT.S_ITS ---
PROCEDURE: CT ABDOMEN PELVIS WO/W CON INDICATIONS: Hematuria/tobacco use TECHNIQUE: Optional 5 mm thick noncontrast images acquired from the diaphragm to the symphysis pubis. After the administration of intravenous contrast, 5 mm thick images acquired from the diaphragm to the symphysis pubis after a 10-minute delay. 2 mm thick coronal and sagittal reformats were then performed of the kidneys and ureters. For radiation dose reduction, the following was used: automated exposure control, adjustment of mA and/or kV according to patient size. COMPARISON: CT, ABDOMEN/PELVIS WITH CONTRAST, 08/18/2012, 11:40. FINDINGS: Image quality: Excellent. Lung bases: Lung bases are clear. Heart size is normal. Urinary system: Both kidneys are normal in size, without hydronephrosis or nephrolithiasis on pre-contrast images. No perinephric fat stranding. There is normal bilateral renal enhancement. Renal calyces appear normal in morphology when filled with contrast. Opacified portions of both ureters demonstrate normal caliber. Bladder wall thickness is normal. No calcified bladder stones. Other solid organs: Liver is normal in size and enhancement. Gallbladder is normal . Biliary system is non dilated. Pancreas enhances normally. Spleen is prominent in size measuring 12.8 cm in length. No adrenal nodules. Peritoneum and bowel: Bowel loops demonstrate normal wall thickness and caliber. Normal appendix. No free fluid or air. Nodes and vessels: No retroperitoneal or mesenteric adenopathy by size criteria. Aorta and inferior vena cava are normal in size. Abdominal wall: No ventral hernias. Pelvis: There is a 4 cm cyst in the left ovary. Right ovary is normal. A 3.7 x 4.2 cm mass is seen in the right posterior aspect of the uterus, most likely a uterine leiomyoma. No pathologic free pelvic fluid. No inguinal hernias or adenopathy. Bones: No suspicious bony lesions. No vertebral body compression fractures. IMPRESSION: 1. No renal stone or hydronephrosis. A cause for hematuria is not identified. Mild nonspecific perinephric stranding bilaterally. 2. A 4 cm cyst in left ovary. Recommend pelvic ultrasound for follow-up. 3. A 3.7 x 4.2 cm mass in the right posterior aspect of the uterine wall, most likely a uterine leiomyoma. This can be evaluated by pelvic ultrasound as well. 4. Dictated by: Briseida Gurrola M.D. on 02/03/2022 at 21:28 Approved by: Briseida Gurrola M.D. on 02/04/2022 at 10:05
== END ==
PROVIDERS: Family Provider Family Medicine; PCP Family Medicine; Referring Provider Urology; Visit Provider Urology
DX: R31.21 Asymptomatic microscopic hematuria (principal); F17.200 Nicotine dependence, unspecified, uncomplicated; N83.202 Unspecified ovarian cyst, left side; N85.9 Noninflammatory disorder of uterus, unspecified
CPT/HCPCS: 74178

== ENCOUNTER → 2022-02-25 14:19 | Outpatient (CLI) | payer OTHER, SELFPAY ==
--- NOTE | 2022-02-25 14:21 | DI.US.S_ITS ---
PROCEDURE: US PELVIC COMPLETE INDICATIONS: FOLLOW UP CT TECHNIQUE: Real-time scanning was performed of the pelvic organs, with image documentation. Additional endovaginal scanning was necessary due to incomplete visualization of the adnexal and endometrial structures by transabdominal scanning. COMPARISON: [facility], CT, CT ABDOMEN PELVIS WO/W CON, 02/03/2022, 14:40. [facility], US, PELVIC COMPLETE, 03/27/2014, 15:02. FINDINGS: Uterus: Uterus is retroverted and normal in size at 6.3 x 4.2 x 3.3 cm. The myometrium is homogeneous. The endometrium measures 1 mm combined thickness. Hypoechoic irregular focus at the uterine fundus measuring 1.2 x 1 x 1 cm with internal vascularity. This appears to be within the myometrium rather than the endometrial canal. Small nabothian cysts. Ovaries: Right ovary is suboptimally visualized. The right ovary measures approximately 1.1 x 0.6 x 0.5 cm, estimated volume of 1 cc. The left ovary measures 4.5 x 4 x 3.1 cm, with a calculated ovarian volume of 29 cc. Large anechoic cyst measuring 4.2 x 3.6 x 2.7 cm with mural nodule measuring 0.9 cm with internal vascularity. Other: No pathologic free abdominal or pelvic fluid. IMPRESSION: 1. Left ovarian anechoic cyst measuring 4.2 cm with small mural nodule containing blood flow. This is concerning for serous cystadenoma or cystadenocarcinoma. -Recommend gynecological consultation. Pelvic MRI with IV contrast may be helpful. 2. Irregular hypoechoic focus which appears to be within the myometrium at the fundus measuring 1.2 cm is indeterminate. This does not have the typical appearance of a fibroid. Pelvic MRI with IV contrast may be helpful for further evaluation to look for additional suspicious features. 3. Uterus is retroverted. No endometrial thickening. Comment: Findings were conveyed to office of Dr. Kingston Hunter at the time of dictation. We strive to produce accurate, complete, and clear reports of imaging services. To assist us in improving patient care, this report was composed using standard report templates and voice recognition software. Therefore, it may contain abnormal punctuation, insertions and/or omissions. Occasional wrong-word or sound-alike substitutions may occur. Though we review the report and make efforts to correct it, we do recommend that the report be read carefully in proper context to recognize any text inaccuracies. Dictated by: Wagner Durbin M.D. on 02/25/2022 at 16:25 Approved by: Wagner Durbin M.D. on 02/25/2022 at 16:45
== END ==
PROVIDERS: Family Provider Family Medicine; PCP Family Medicine; Referring Provider Family Medicine; Visit Provider Family Medicine
DX: N83.292 Other ovarian cyst, left side (principal); N85.4 Malposition of uterus; M85.40 Solitary bone cyst, unspecified site; R31.21 Asymptomatic microscopic hematuria
CPT/HCPCS: 52000; 76830; 76856; 81002

== ENCOUNTER → 2022-02-27 15:46 | Outpatient (CLI) | payer OTHER, SELFPAY ==
[2022-02-27 16:40] LABS: Lactate Dehydrogenase 395 U/L (313-618)
[2022-02-27 16:43] LABS: Hemoglobin A1C% w Est Avg Glu 5.4 % (4.0-6.0)
[2022-02-27 17:09] LABS: Cancer Antigen 125 14.1 U/mL (0-35); Carcinoembryonic Antigen 2.1 ng/mL (0.1-3.0)
[2022-02-28 05:36] LABS: Alpha Fetoprotein 3.6 ng/mL (0.0-9.2)
[2022-03-04 12:36] LABS: Inhibin B <7.0 pg/mL (0.0-16.9)
== END ==
PROVIDERS: Family Provider Family Medicine; PCP Family Medicine; Referring Provider Obstetrics & Gynecology; Visit Provider Obstetrics & Gynecology
DX: R73.9 Hyperglycemia, unspecified (principal); N94.89 Other specified conditions associated with female genital organs and menstrual cycle
CPT/HCPCS: 36415; 82105; 82378; 83036; 83520; 83615; 86304

== ENCOUNTER → 2022-09-24 15:05 | Outpatient (CLI) | payer OTHER, SELFPAY ==
--- NOTE | 2022-09-24 15:08 | DI.US.S_ITS ---
PROCEDURE: US PELVIC COMPLETE INDICATIONS: FOLLOW UP LEFT OVARIAN CYST IN MENOPAUSAL PATIENT TECHNIQUE: Real-time scanning was performed of the pelvic organs, with image documentation. Additional endovaginal scanning was necessary due to incomplete visualization of the adnexal and endometrial structures by transabdominal scanning. COMPARISON: [facility], CT, CT ABDOMEN PELVIS WO/W CON, 02/03/2022, 14:40. [facility], US, US PELVIC COMPLETE, 02/25/2022, 14:40. FINDINGS: Uterus: Uterus is retroverted and normal in size at 6.4 x 4.9 x 2.9 cm. The myometrium is homogeneous. The endometrium measures 3 mm combined thickness. Hypoechoic focus at the fundus myometrium measuring 1.1 x 1.1 x 0.6 cm, not significantly changed in size. There is internal vascular. Ovaries: The right ovary is not seen. The left ovary measures 5 x 4.4 x 3.9 cm, with a calculated ovarian volume of 45 cc. There is blood flow within the left ovary. Left ovarian cyst measuring 4.3 x 3.8 x 3.1 cm, volume of 26 cc, (previously 4.2 x 3.6 x 2.7 cm, volume of 21 cc). There is a mural nodule which measures 1.2 cm. No internal vascularity within the nodule. Other: No pathologic free abdominal or pelvic fluid. IMPRESSION: 1. Left ovarian cyst measuring 4.3 cm is mildly increased in size. Mural nodule measuring 1.2 cm is similar in size. Benign and malignant etiologies remain in the differential diagnosis. Consider further evaluation with pelvic MRI. 2. Probable intramural fibroid measuring 1.1 cm. 3. Endometrium measures 0.3 cm. We strive to produce accurate, complete, and clear reports of imaging services. To assist us in improving patient care, this report was composed using standard report templates and voice recognition software. Therefore, it may contain abnormal punctuation, insertions and/or omissions. Occasional wrong-word or sound-alike substitutions may occur. Though we review the report and make efforts to correct it, we do recommend that the report be read carefully in proper context to recognize any text inaccuracies. Dictated by: Wagner Durbin M.D. on 09/24/2022 at 17:23 Approved by: Wagner Durbin M.D. on 09/24/2022 at 17:30
== END ==
PROVIDERS: Family Provider Family Medicine; PCP Family Medicine; Referring Provider Obstetrics & Gynecology; Visit Provider Obstetrics & Gynecology
DX: N83.202 Unspecified ovarian cyst, left side (principal)
CPT/HCPCS: 76830; 76856; 93976

== ENCOUNTER 2022-11-30 22:25 | Emergency (ER) | payer OTHER, SELFPAY ==
[2022-11-30 22:35] VITALS: BP 178/77; PULSE 88; RESP 16; TEMP 36.8; O2SAT 93; BMI 34.5
--- NOTE | 2022-11-30 22:37 | DI.RAD.S_ITS ---
PROCEDURE: XR CHEST 1V INDICATIONS: chest pain TECHNIQUE: One view of the chest was acquired. COMPARISON: [facility], CR, XR CHEST 2V, 01/22/2022, 12:01. FINDINGS: Surgical changes and devices: A partially visualized epidural tumor stimulator lead is redemonstrated with the tip at the level of T9. Lungs and pleura: Lungs are clear. No pleural effusions or pneumothorax. Mediastinum: Mediastinal contours appear normal. Heart size is normal. Bones and chest wall: No suspicious bony lesions. Overlying soft tissues appear unremarkable. IMPRESSION: 1. No acute cardiopulmonary disease. Dictated by: Jameel Batista M.D. on 11/30/2022 at 23:36 Approved by: Jameel Batista M.D. on 11/30/2022 at 23:37
[2022-11-30 23:00] LABS: Add Manual Diff / Slide Review NO; Basophils Absolute Auto 0 /uL (0-100); Basophils Percent Auto 0.6 % (0-2); Eosinophils Absolute Auto 200 /uL (0-450); Eosinophils Percent Auto 2.2 % (2-4); Hematocrit 43.9 % (36-46); Hemoglobin 15.4 g/dL (12.0-16.0); Lymphocytes Absolute Auto 2200 /uL (1100-4500); Mean Corpuscular Hemoglobin 30.4 PG (26-34); Monocytes Absolute Auto 700 /uL (0-900); Neutrophils Absolute Auto 5200 /uL (1500-7000); Neutrophils Percent Auto 62.2 % (50-75); Platelet Count 166 X10^3/uL (150-400); Red Blood Cell Count 5.05 X10^6/uL (4.0-5.2); Red Cell Distribution Width 13.3 % (11.6-14.8); White Blood Cell Count 8.3 X10^3/uL (4.5-11.0)
[2022-11-30 23:01] LABS: Prothrombin Time 11.1 SECONDS (10.1-12.7)
[2022-11-30 23:04] LABS: PTT Partial Thromboplastin Tim 31 SECONDS (26-36)
[2022-11-30 23:08] LABS: Alanine Aminotransferase 16 IU/L (<35); Albumin 4.4 g/dL (3.5-5.0); Albumin Globulin Ratio 1.3 (1.0-2.8); Alkaline Phosphatase 101 U/L (38-126); Aspartate Aminotransferase 20 IU/L (14-36); BUN Creatinine Ratio 12.6 (6-22); Bilirubin Total 0.4 mg/dL (0.2-1.3); Blood Urea Nitrogen 13 mg/dL (7-17); Calcium 9.2 mg/dL (8.4-10.2); Carbon Dioxide 32 mmol/L (22-32); Chloride 98 mmol/L (98-107); Creatine Kinase < 20 U/L (30-135); Estimated Glomerular Filt Rate > 60 mL/min (>60); Globulin 3.4 g/dL (1.7-4.1); Glucose 164 mg/dL (80-110); HEMOLYSIS 19 (0-50); Lipase 116 U/L (23-300); Magnesium 1.8 mg/dL (1.6-2.3); Potassium 3.8 mmol/L (3.4-5.1); Sodium 137 mmol/L (137-145); Total Protein 7.8 g/dL (6.3-8.2)
[2022-11-30 23:19] LABS: Troponin I < 0.012 ng/mL (0.01-0.034)
[2022-12-01] VITALS (9 sets, daily range): BP systolic 121–173; BP diastolic 58–76; PULSE 77–84; RESP 16–24; O2SAT 92–98
--- NOTE | 2022-12-01 00:46 | ED_ITS ---
HPI - Chest Pain General Chief Complaint: Chest Pain Stated Complaint: Chest pain Time Seen by Provider: 12/01/22 00:46 Source: patient Mode of arrival: Family Vehicle Limitations: no limitations History of Present Illness HPI narrative: 62-year-old woman with a history of anxiety, depression, reactive airway disease with continued half a pack-a-day tobacco use disorder, chronic lumbar disease with implantable stimulator, hyperlipidemia, combined variable immunodeficiency with a history of an enlarging ovarian cyst that is scheduled to be removed on the who presents with chest pain. She stated it started around 3:00 a.m. this afternoon describes episodes of rhythmic recurrent pain worse with deep breathing epigastric to central chest area associated with a sharp tight feeling. She was able to have dinner and as the continued episodes of pain persisted through the evening she came in for further evaluation. The waves of chest pain will last for minutes at a time and are not associated with dyspnea, palpitations or diaphoresis. She reports no nausea vomiting or diarrhea. She notes that she does have reflux symptoms that have been stable recently. She had an upper respiratory infection approximately 5 weeks ago and still has a slight cough from this. She uses Dulera occasionally for wheezing but is on no chronic daily medications for airway disease. Related Data Home Medications Medication Instructions Recorded Confirmed aspirin 81 mg capsule 81 mg PO DAILY 10/30/21 11/27/22 Previous Rx's Medication Instructions Recorded mometasone-formoterol HFA 200 2 puff inhalation ONCE PRN asthma 05/29/20 mcg-5 mcg/actuation aerosol #8.8 grams inhaler (Dulera) bupropion HCl 150 mg tablet,12 hr 150 mg PO BID #180 tabs 09/05/21 sustained-release (Wellbutrin SR) clonazepam 1 mg tablet (Klonopin) 1 mg PO TID #270 tabs 03/16/22 prazosin 2 mg capsule 8 mg PO QDAY #360 caps 05/25/22 acyclovir 400 mg tablet 400 mg PO QDAY #90 tabs 06/15/22 atorvastatin 10 mg tablet (Lipitor) 10 mg PO HS #90 tabs 06/15/22 mirabegron 25 mg tablet,extended 50 mg PO DAILY #120 tabs 06/17/22 release 24 hr (Myrbetriq) pantoprazole 40 mg tablet,delayed 40 mg PO BID #180 tabs 08/28/22 release (Protonix) trazodone 50 mg tablet See Rx Instructions PO HS #120 tabs 11/24/22 fluticasone propionate 220 1 puff inhalation BID #12 grams 12/01/22 mcg/actuation HFA aerosol inhaler (Flovent HFA) prednisone 20 mg tablet 40 mg PO DAILY #6 tabs 12/01/22 Allergies Allergy/AdvReac Type Severity Reaction Status Date / Time adhesive tape Allergy Unknown WELT Verified 11/27/22 15:11 tree and shrub pollen Allergy Unknown Verified 11/27/22 15:11 Review of Systems Review of Systems Narrative: Pertinent positive and negative findings as per HPI Patient History Medical History Anxiety Asthma Asymptomatic microscopic hematuria Common variable immunodeficiency (12/13/13) Depression GERD (gastroesophageal reflux disease) Herpes Lower urinary tract symptoms Reactive airway disease Tobacco use Surgical History H/O breast biopsy History of back surgery History of cystoscopy (12/04/13) History of third molar tooth extraction History of tubal ligation Status post right foot surgery Status post tubal ligation Family History Father Cancer Sister Gout Hypertension Brother Hypertension Hearing impairment Social History marital status: number of children: 2 household members: spouse Smoking Status: Current every day smoker Tobacco: How many years used: 45 quit status: considering quitting alcohol intake: never substance use type: does not use Smoking Status: Current every day smoker tobacco type: cigarettes alcohol intake frequency: 0-2 drinks per day Substance Use Type: marijuana Exam Initial Vital Signs Initial Vital Signs: Vital Signs Temperature 98.2 F 11/30/22 22:35 Pulse Rate 88 11/30/22 22:35 Respiratory Rate 16 11/30/22 22:35 Blood Pressure 178/77 H 11/30/22 22:35 Pulse Oximetry 93 11/30/22 22:35 Oxygen Delivery Method Room Air 11/30/22 22:35 General: Healthy appearing, in no acute distress. Able to give a complete and coherent history. Well-nourished well-developed HEENT: Moist mucous membranes, normal sclera with reactive pupils, Neck: No JVD, supple Respiratory: Lungs with scattered wheezes in all lung cedeño but otherwise Full and symmetrical air movement Chest: No skin changes over the left ribcage, no tenderness with palpation along sternal borders Cardiac: Regular rate and rhythm no murmurs no bruits Abdomen: Soft, nontender, good bowel tones, no flank pain Skin: Warm and dry, no rashes Neurologic: Grossly neurologically intact with no obvious asymmetries or abnormalities Extremities: No trauma, well perfused Psych: Cooperative, appropriate insight and affect Course Orders Ordered: ED Orders 11/30/22 22:37 XR chest 1V Stat EKG-12 Lead Stat 11/30/22 22:45 Complete Blood Count AUTO DIFF Stat Comprehensive Metabolic Panel Stat Lipase Stat Magnesium Stat PTT Partial Thromboplastin Emilio Stat Prothrombin Time INR Stat Troponin & CK Cardiac Panel Stat 12/01/22 01:00 D Dimer Stat 12/01/22 01:20 Trop I [Troponin I] Stat 12/01/22 02:36 CT angio chest PE protocol Stat Discontinued Medications Albuterol/Ipratropium (Albuterol/Ipratropium 3 Ml Ampul) 3 ml INH NOW ONE Stop: 12/01/22 01:01 Last Admin: 12/01/22 01:08 Dose: 3 ml Documented By: Ketorolac Tromethamine (Ketorolac 30 Mg/Ml Vial) 15 mg IV NOW ONE Stop: 12/01/22 01:01 Last Admin: 12/01/22 01:10 Dose: 15 mg Documented By: RAYMOND Methylprednisolone (Methylprednisolone 125 Mg/2 Ml Vial) 125 mg IV NOW ONE Stop: 12/01/22 01:01 Last Admin: 12/01/22 01:10 Dose: 125 mg Documented By: RAYMOND Vital Signs Vital signs: Vital Signs - 8 hr 11/30/22 22:35 12/01/22 00:03 12/01/22 00:32 Temperature 98.2 F Pulse Rate 88 77 79 Respiratory Rate 16 20 20 Blood Pressure 178/77 H 173/76 H Pulse Oximetry 93 98 92 Oxygen Delivery Method Room Air Room Air 12/01/22 01:00 12/01/22 01:30 12/01/22 02:00 Temperature Pulse Rate 79 79 82 Respiratory Rate 20 16 23 Blood Pressure Pulse Oximetry 94 93 94 Oxygen Delivery Method 12/01/22 02:13 12/01/22 02:13 12/01/22 02:30 Temperature Pulse Rate 83 84 Respiratory Rate 18 24 Blood Pressure 121/58 L Pulse Oximetry 95 92 Oxygen Delivery Method 12/01/22 03:00 Temperature Pulse Rate 81 Respiratory Rate 18 Blood Pressure Pulse Oximetry 95 Oxygen Delivery Method MDM - Chest Pain Lab Data 11/30/22 22:45 11/30/22 22:45 Labs: Lab Results 11/30/22 11/30/22 11/30/22 Range/Units 22:45 22:45 22:45 WBC 8.3 (4.5-11.0) X10^3/uL RBC 5.05 (4.0-5.2) X10^6/uL Hgb 15.4 (12.0-16.0) g/dL Hct 43.9 (36-46) % MCV 87.0 (80-100) fL MCH 30.4 (26-34) PG MCHC 35.0 (30-36) % RDW 13.3 (11.6-14.8) % Plt Count 166 (150-400) X10^3/uL Neut % (Auto) 62.2 (50-75) % Lymph % (Auto) 27.0 (25-40) % [place] % (Auto) 8.0 (3-14) % Eos % (Auto) 2.2 (2-4) % Baso % (Auto) 0.6 (0-2) % Neut # (Auto) 5200 (5774-7547) /uL Lymph # (Auto) 2200 (2752-7329) /uL [place] # (Auto) 700 (0-900) /uL Eos # (Auto) 200 (0-450) /uL Baso # (Auto) 0 (0-100) /uL PT 11.1 (10.1-12.7) SECONDS INR 1.0 (0.9-1.3) APTT 31 (26-36) SECONDS D-Dimer (<500) ng/ml Sodium 137 (137-145) mmol/L Potassium 3.8 (3.4-5.1) mmol/L Chloride 98 (98-107) mmol/L Carbon Dioxide 32 (22-32) mmol/L BUN 13 (7-17) mg/dL Creatinine 1.03 (0.52-1.04) mg/dL Estimated GFR > 60 (>60) mL/min BUN/Creatinine Ratio 12.6 (6-22) Glucose 164 H (80-110) mg/dL Calcium 9.2 (8.4-10.2) mg/dL Magnesium 1.8 (1.6-2.3) mg/dL Total Bilirubin 0.4 (0.2-1.3) mg/dL AST 20 (14-36) IU/L ALT 16 (<35) IU/L Alkaline Phosphatase 101 (38-126) U/L Total Creatine Kinase < 20 L (30-135) U/L CK-MB (CK-2) TNP CK-MB (CK-2) Rel Index TNP Troponin I < 0.012 (0.01-0.034) ng/mL Total Protein 7.8 (6.3-8.2) g/dL Albumin 4.4 (3.5-5.0) g/dL Globulin 3.4 (1.7-4.1) g/dL Albumin/Globulin Ratio 1.3 (1.0-2.8) Lipase 116 (23-300) U/L 11/30/22/12/18 Range/Units 22:45 01:20 WBC (4.5-11.0) X10^3/uL RBC (4.0-5.2) X10^6/uL Hgb (12.0-16.0) g/dL Hct (36-46) % MCV (80-100) fL MCH (26-34) PG MCHC (30-36) % RDW (11.6-14.8) % Plt Count (150-400) X10^3/uL Neut % (Auto) (50-75) % Lymph % (Auto) (25-40) % [place] % (Auto) (3-14) % Eos % (Auto) (2-4) % Baso % (Auto) (0-2) % Neut # (Auto) (2594-6187) /uL Lymph # (Auto) (6307-6472) /uL [place] # (Auto) (0-900) /uL Eos # (Auto) (0-450) /uL Baso # (Auto) (0-100) /uL PT (10.1-12.7) SECONDS INR (0.9-1.3) APTT (26-36) SECONDS D-Dimer 632 H (<500) ng/ml Sodium (137-145) mmol/L Potassium (3.4-5.1) mmol/L Chloride (98-107) mmol/L Carbon Dioxide (22-32) mmol/L BUN (7-17) mg/dL Creatinine (0.52-1.04) mg/dL Estimated GFR (>60) mL/min BUN/Creatinine Ratio (6-22) Glucose (80-110) mg/dL Calcium (8.4-10.2) mg/dL Magnesium (1.6-2.3) mg/dL Total Bilirubin (0.2-1.3) mg/dL AST (14-36) IU/L ALT (<35) IU/L Alkaline Phosphatase (38-126) U/L Total Creatine Kinase (30-135) U/L CK-MB (CK-2) CK-MB (CK-2) Rel Index Troponin I < 0.012 (0.01-0.034) ng/mL Total Protein (6.3-8.2) g/dL Albumin (3.5-5.0) g/dL Globulin (1.7-4.1) g/dL Albumin/Globulin Ratio (1.0-2.8) Lipase (23-300) U/L MDM Narrative Medical decision making narrative: CC: Chest pain, acute problem uncertain prognosis Complicating co-morbidities: Tobacco abuse, hyperlipidemia, combined variable immunodeficiency, enlarging ovarian cyst scheduled for surgery later this week Data collected from: patient, Social determinants of health that may influence the patients condition: Medical records reviewed: Hospital history and physical from March of 2020 is reviewed Differential considered: Acute coronary syndrome, gallbladder issues, pleurisy, COPD exacerbation, pulmonary embolism, Exam documented above, pertinent findings include: Scattered wheezes in all lung cedeño. She does have an episode of the wave of pain during the physical exam. No additional physical findings were appreciated while she was acutely tender. The resolved quickly and completely. Lab Test results independently reviewed as above. Pertinent findings: CBC is reassuring with no acute anemia or leukocytosis. Chemistries are reassuring initial Troponin is undetectable, 2 hour repeat is also undetectable D-dimer is slightly elevated, will obtain CT of the chest Independently reviewed EKG sinus rhythm at a rate of 80. Normal axis. Nonspecific ST T wave changes. No acute ischemia Imaging studies independently reviewed: Chest x-ray is unremarkable CT chest pulmonary embolism protocol is ordered due to the elevated D-dimer, episodes of waxing and waning chest pain and intermittent episodes of hypoxia. Study shows no pulmonary emboli, bilateral bronchial wall thickening with ill- defined basilar opacities which could indicate infiltrate or atelectasis. Enlarged mediastinal and right hilar lymph nodes. These could be reactive but short-term repeat imaging after treatment may be beneficial to reassess. Consultations: Treatments: Re-evaluations: 02:15 pt had an episode of desaturation down to 71% with good pleth and recheck on multiple fingers. Patient said she was getting it bit dizzy. She blamed it on shallow breathing. She was not asleep. Saturations improved with deep breathing currently she is on 2 L of oxygen nasal cannula with saturations in the 93% range. Initial oxygen saturations were at 93% on room air with arrival. Discussion: 62 yo presents with episodes of chest pain starting this evening. Workup today suggest no evidence for acute coronary syndrome, pulmonary embolism, pneumothorax, bacterial infection. CT scan noted some enlarged medi astinal and hilar lymph nodes likely reactive and will need follow-up. I suspect that overall this is pleuritic type pain with an acute reactive airway disease exacerbation persisting after upper respiratory infection approximately a month ago. After Solu-Medrol and nebulized treatment she is feeling significantly improved. There is no indication for hospitalization. She is off oxygen and saturations are in the 94% range. She does have albuterol meter dose inhaler available at home. She is given a spacer with instructions on use. Will place her on 3 additional days of prednisone, recommend steroid inhaler, recommend scheduled albuterol inhaler use. Did ask that she follow-up with Dr. Menchaca to let him know that she was in the emergency department. At this point I do not see any diagnoses that should delay her ovarian surgery scheduled for Wednesday of this week. Discharge Plan Departure Patient Disposition: Home Clinical Impression: Pleurisy Exacerbation of reactive airway disease Qualifiers: Asthma severity: unspecified severity Asthma persistence: unspecified Qualified Code(s): J45.901 - Unspecified asthma with (acute) exacerbation Instructions: DI for Chronic Obstructive Pulmonary Disease, DI for Pleurisy Activity Restrictions/Additional Instructions: Thank you for coming in today I did not find any evidence of heart problems to explain your chest pain. I suspect that most of the symptoms are secondary to lung problems. It sounds like you still are trying to clear the viral infection that you had almost 5 weeks ago. With her smoking history I suspect there is also a component of either COPD or asthma are both that is contributing.you responded well to the IV steroids and nebulized albuterol. I have given you a prescription for a steroid inhaler to be used twice a day to help prevent symptoms. I am also going to give you a prescription for 3 days of oral steroids. Our respiratory therapist gave you a spacer to use with your albuterol puffer at home so that your getting more effective doses of the albuterol. You will need follow-up with your primary care physician to make sure that your pulmonary disease is improving. Everything will be significantly better if you are able to stop smoking as well. I wish you well with your anticipated surgery. If you find that you are getting worse or develop any new symptoms, please feel free to return to the emergency department for further evaluation. Prescriptions: New prednisone 20 mg tablet 40 mg PO DAILY Qty: 6 0RF fluticasone propionate [Flovent HFA] 220 mcg/actuation HFA aerosol inhaler 1 puff inhalation BID Qty: 12 1RF No Action Dulera 200-5 mcg/actuation HFA aerosol inhaler 2 puff INHALATION ONCE PRN (Reason: asthma) Qty: 8.8 0RF bupropion HCl [Wellbutrin SR] 150 mg tablet sustained-release 12 hr 150 mg PO BID Qty: 180 3RF clonazepam [Klonopin] 1 mg tablet 1 mg PO TID Qty: 270 0RF prazosin 2 mg capsule 8 mg PO QDAY Qty: 360 3RF Rx Instructions: Take four capsules by mouth once a day. atorvastatin [Lipitor] 10 mg tablet 10 mg PO HS Qty: 90 3RF acyclovir 400 mg tablet 400 mg PO QDAY Qty: 90 3RF Myrbetriq 25 mg tablet extended release 24 hr 50 mg PO DAILY Qty: 120 2RF pantoprazole [Protonix] 40 mg tablet,delayed release (DR/EC) 40 mg PO BID Qty: 180 3RF trazodone 50 mg tablet See Rx Instructions PO HS Qty: 120 4RF Dose Instruction: Take 3 to 4 tablet at bedtime at directed PO HS; Rx Instructions: Take 4 at hs aspirin 81 mg Capsule 81 mg PO DAILY Referrals: Kingston Hunter MD [Primary Care Provider] - Stand Alone Forms: Patient Portal/API
[2022-12-01] MEDS: ALBUTEROL/IPRATROPIUM 3 ML AMPUL INH (01:08)
[2022-12-01] MEDS: KETOROLAC 30 MG/ML VIAL 15 MG IV (01:10)
[2022-12-01] MEDS: methylPREDNISolone 125 MG/2 ML VIAL IV (01:10)
[2022-12-01 01:16] LABS: D Dimer 632 ng/ml (<500)
[2022-12-01 01:47] LABS: Troponin I < 0.012 ng/mL (0.01-0.034)
--- NOTE | 2022-12-01 02:23 | PC.NURSE ---
Patient placed on 2L oxygen to keep oxygen saturation at a normal level. Patient keeps dipping down to 80%
--- NOTE | 2022-12-01 02:36 | DI.CT.S_ITS ---
PROCEDURE: CT ANGIO CHEST PE PROTOCOL INDICATIONS: dyspnea, +D dimer, hypoxia intermittent TECHNIQUE: After the administration of intravenous contrast, 2 mm thick sections acquired from the pulmonary apices to the posterior costophrenic angles. 3-dimensional maximum intensity projection (MIP) coronal and sagittal reformats were then acquired through the thorax. For radiation dose reduction, the following was used: automated exposure control, adjustment of mA and/or kV according to patient size. COMPARISON: [facility], CR, XR CHEST 1V, 11/30/2022, 23:09. FINDINGS: Image quality: Excellent. Pulmonary arteries: Pulmonary arteries are normal in size, and demonstrate no intraluminal filling defects to suggest central pulmonary embolism. Lungs and pleura: Bibasilar atelectasis. Mild-moderate perihilar airway thickening of the bilateral upper and lower lung lobes. Patchy ground-glass opacities seen throughout the bilateral hemithoraces. No focal consolidation seen with exception of somewhat linear right basilar consolidations likely related to atelectasis. No septal nodularity. Suggestion of minimal septal thickening most pronounced in the bilateral upper lobes. No pneumothorax seen. No substantial pleural effusion. Mediastinum: Heart size is normal, without pericardial effusion. Coronary atherosclerotic vascular calcifications are noted. Multiple prominent mediastinal and hilar lymph nodes. Largest measures up to 1.0 cm in short axis dimension. Prominent right hilar lymph nodes. Otherwise, no pathologically enlarged lymph nodes by size criteria. Thoracic aorta is normal in caliber and enhancement. Esophagus is normal in caliber, without hiatal hernia. Bones and chest wall: No suspicious bony lesions. Ribs and thoracic spine appear intact throughout. Thyroid gland is unremarkable. No axillary or supraclavicular adenopathy. No acute compression fractures of the vertebral bodies. Thoracic spinal cord stimulator terminates at the level of T9. Abdomen: Visualized upper abdominal solid organs appear normal in the early arterial phase of enhancement. IMPRESSION: 1. No acute pulmonary emboli. No acute right sided heart strain. 2. Bilateral perihilar airway thickening with associated scattered patchy ground-glass opacities and possible subtle smooth septal thickening of the bilateral upper lobes. Findings may be related to an infectious or inflammatory process although early pulmonary edema may have a similar appearance. Somewhat linear right basilar dependent consolidation favored to represent atelectasis. Otherwise, no focal airspace disease identified. Follow-up imaging recommended after treatment and resolution symptoms. 3. Prominent mediastinal and right hilar lymph nodes likely reactive in etiology. Attention will be made on follow-up imaging. 4. Atherosclerosis. No significant discrepancy with the film processing shift supervisor radiology preliminary report. Dictated by: Grant Garcia M.D. on 12/01/2022 at 7:39 Approved by: Grant Garcia M.D. on 12/01/2022 at 8:29
== END 2022-12-01 04:03 | disposition home or self-care (01) ==
PROVIDERS: Emergency Provider Emergency Medicine; Family Provider Family Medicine; PCP Family Medicine
DX: J45.901 Unspecified asthma with (acute) exacerbation (principal); R09.1 Pleurisy; Z79.899 Other long term (current) drug therapy
CPT/HCPCS: 36415; 71045; 71275; 80053; 82550; 82553; 83690; 83735; 84484; 85025; 85379; 85610; 85730; 93005; 93010; 94640; 96374; 96375; 99284; J1885; J2930; Q9967

== ENCOUNTER 2022-12-18 08:32 | Day surgery (SDC) | payer OTHER, SELFPAY ==
[2022-12-01 10:53] VITALS: BMI 35.0
[2022-12-18] VITALS (11 sets, daily range): BP systolic 120–143; BP diastolic 53–77; PULSE 78–105; RESP 12–20; TEMP 36.2–36.7; O2SAT 91–97; BMI 35.0
--- NOTE | 2022-12-18 | PATH_ITS ---
[facility] Accession Number: [id number] No. of containers..02 Tissue . 01 Material submitted: . PART A: ovary - RIGHT FALLOPIAN TUBE AND OVARY PART B: ovary - LEFT OVARY . 01 Diagnosis: A. Right Fallopian Tube and Ovary, Salpingo-oophorectomy: Fimbriated fallopian tube with benign paratubal cysts. Ovary with postmenopausal changes, including corpora albicantia. Negative for neoplasia. . B. Left Ovary, Oophorectomy: Papillary serous cystadenofibroma. Negative for significant atypia and malignancy. [facility] 12/24/2022 1746 Local . 01 Electronically signed: . Shena Gonzalez MD, Pathologist NPI- [id number] . 01 Gross description: . A. Received in formalin labeled with the patient's name, and right fallopian tube and ovary consists of a fimbriated fallopian tube measuring 6.4 cm in length by 0.9 cm in diameter with violaceous wrinkled serosa and multiple cystic structures measuring up to 0.4 cm in greatest dimension filled with cloudy serous fluid. Sectioning reveals a discontinuous lumen possibly consistent with previous tubal ligation and an otherwise unremarkable stellate lumen. Also within the container is a detached, mariscal, cerebriform ovary weighing 4 grams and measuring 3.2 x 1.7 x 1.4 cm. Sectioning reveals an unremarkable, physiologic cut surface with no discrete lesions identified. Animal Anatomy Teacher sections are submitted as follows: A1: Fallopian tube to include one-half of bisected fimbriae and cross sections. A2: Animal Anatomy Teacher ovary. B. Received in formalin labeled with the patient's name, and left ovary consists of a mariscal, wrinkled ovary weighing 6 grams and measuring 4.3 x 3.0 x 1.2 cm. The external surface is inked blue and sectioning reveals a unilocular thin-walled cystic structure measuring 2.9 cm in greatest dimension with no cystic contents grossly identified. An area of excrescence is identified measuring 1.0 x 0.7 cm with no additional excrescences identified. The presumed normal ovarian parenchyma is distorted and otherwise unremarkable. Animal Anatomy Teacher sections are submitted as follows: B1: Entire area with excrescences. B2-B4: Additional accounts payable representative sections. ([id number]) /MRV 12/22/2022 1501 Local . 01 Pathologist provided ICD-10: N83.202 . 01 CPT . 020112, [id number] Performed at: 01 [facility] [address], [place], [place] [id number] MD Jameel Griffiths MD Phone: [phone]
--- NOTE | 2022-12-18 09:45 | PM.PREOP ---
Pre-operative Note COVID-19 COVID-19 status: Not tested Criteria for continued procedure: Non-surgical alternatives not available or appropriate per current SOC Interval Note History & Physical reviewed/Exam performed by Physician: Yes Changes to H&P: No
--- NOTE | 2022-12-18 11:18 | SUR.OPER ---
Lithotomy on padded OR bed, head on pillow, arms wrapped in gel and tucked against body, fingers protected. Legs secured in padded yellow fins stirrups.
[2022-12-18] MEDS: BUPIVACAINE 0.5% (PF) 30 ML, EPINEPHrine 0.15 MG INJ (11:22)
--- NOTE | 2022-12-18 13:28 | PM.GYNOP.1 ---
Operative Date/Time/Diagnoses Date of procedure: 12/18/22 Time of procedure: 10:15 Pre-op diagnosis: Left ovarian cyst Post-op diagnosis: other (Same as above; extensive abdominopelvic adhesions) Procedure & Clinicians Procedure: Procedures Operation Date: 12/18/22 09:45 Actual Procedure Side Surgeon p Laparoscopic Salpingo-oophorectomy s Adhesiolysis, extensive Bilateral Cristofer Menchaca MD Indications: Flakita is a 61-year-old , LMP at age 50 when she went through menopause who presented originally for evaluation due to a left ovarian cyst discovered on abdominal pelvic CT performed 02/03/2022 to evaluate for source of microscopic hematuria and subsequent pelvic US performed 02/25/2022 which showed: PROCEDURE:? CT ABDOMEN PELVIS WO/W CON 02/03/2022 ? INDICATIONS:? Hematuria/tobacco use ? TECHNIQUE:? Optional 5 mm thick noncontrast images acquired from the diaphragm to the symphysis pubis.? After the administration of intravenous contrast, 5 mm thick images acquired from the diaphragm to the symphysis pubis after a 10-minute delay.? 2 mm thick coronal and sagittal reformats were then performed of the kidneys and ureters.? For radiation dose reduction, the following was used:? automated exposure control, adjustment of mA and/or kV according to patient size.? ? COMPARISON:? CT, ABDOMEN/PELVIS WITH CONTRAST, 08/18/2012, 11:40. ? FINDINGS:? Image quality:? Excellent.? ? Lung bases:? Lung bases are clear.? Heart size is normal.? ? Urinary system:? Both kidneys are normal in size, without hydronephrosis or nephrolithiasis on pre-contrast images.? No perinephric fat stranding.? There is normal bilateral renal enhancement.? Renal calyces appear normal in morphology when filled with contrast.? Opacified portions of both ureters demonstrate normal caliber.? Bladder wall thickness is normal.? No calcified bladder stones.? ? Other solid organs:? Liver is normal in size and enhancement.? Gallbladder is normal .? Biliary system is non dilated.? Pancreas enhances normally.? Spleen is prominent in size measuring 12.8 cm in length.? No adrenal nodules.? ? Peritoneum and bowel:? Bowel loops demonstrate normal wall thickness and caliber.? Normal appendix.? No free fluid or air.? ? Nodes and vessels:? No retroperitoneal or mesenteric adenopathy by size criteria.? Aorta and inferior vena cava are normal in size.? ? Abdominal wall:? No ventral hernias.? ? Pelvis:? There is a 4 cm cyst in the left ovary.? Right ovary is normal.? A 3.7 x 4.2 cm mass is seen in the right posterior aspect of the uterus, most likely a uterine leiomyoma.? No pathologic free pelvic fluid.? No inguinal hernias or adenopathy.? ? Bones:? No suspicious bony lesions.? No vertebral body compression fractures.? ?? IMPRESSION:? ? 1. No renal stone or hydronephrosis.? A cause for hematuria is not identified.? Mild nonspecific perinephric stranding bilaterally. 2.? A 4 cm cyst in left ovary.? Recommend pelvic ultrasound for follow-up. 3.? A 3.7 x 4.2 cm mass in the right posterior aspect of the uterine wall, most likely a uterine leiomyoma.? This can be evaluated by pelvic ultrasound as well. PROCEDURE:? US PELVIC COMPLETE 02/25/2022 ? INDICATIONS:? FOLLOW UP CT ? TECHNIQUE:? Real-time scanning was performed of the pelvic organs, with image documentation.? Additional endovaginal scanning was necessary due to incomplete visualization of the adnexal and endometrial structures by transabdominal scanning.? ? COMPARISON:? [facility], CT, CT ABDOMEN PELVIS WO/W CON, 02/03/2022, 14:40.? [facility], US, PELVIC COMPLETE, 03/27/2014, 15:02. ? FINDINGS:? ?? Uterus:? Uterus is retroverted and normal in size at 6.3 x 4.2 x 3.3 cm. The myometrium is homogeneous. ? The endometrium measures 1 mm combined thickness.? Hypoechoic irregular focus at the uterine fundus measuring 1.2 x 1 x 1 cm with internal vascularity.? This appears to be within the myometrium rather than the endometrial canal.? Small nabothian cysts. ? Ovaries:? Right ovary is suboptimally visualized.? The right ovary measures approximately 1.1 x 0.6 x 0.5 cm, estimated volume of 1 cc. ? The left ovary measures 4.5 x 4 x 3.1 cm, with a calculated ovarian volume of 29 cc.? Large anechoic cyst measuring 4.2 x 3.6 x 2.7 cm with mural nodule measuring 0.9 cm with internal vascularity.? ? Other:? No pathologic free abdominal or pelvic fluid. ? ? IMPRESSION:? 1. Left ovarian anechoic cyst measuring 4.2 cm with small mural nodule containing blood flow.? This is concerning for serous cystadenoma or cystadenocarcinoma.? -Recommend gynecological consultation.? Pelvic MRI with IV contrast may be helpful. ? 2. Irregular hypoechoic focus which appears to be within the myometrium at the fundus measuring 1.2 cm is indeterminate.? This does not have the typical appearance of a fibroid.? Pelvic MRI with IV contrast may be helpful for further evaluation to look for additional suspicious features. ? 3. Uterus is retroverted.? No endometrial thickening The patient has been experiencing occasion discomfort deep in the LLQ these symptoms have been ongoing for months and she had a colonoscopy earlier this year which was negative.? She is no family history of gynecologic malignancies.? She does have a family history of breast cancer in paternal line with a paternal aunt and cousin previously diagnosed with breast cancer.? 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 Tumor markers obtained since the left ovarian cyst was noted are negative and include CA 125, AFP, CEA, inhibin B, and LDH. Extensive discussion regarding potential causes of the left ovarian cyst as well as the ultrasound characteristics of the cyst and negative tumor marker studies.? Although it would appear that this is most likely a benign ovarian process, no absolute assurance can be provided without histologic evaluation of the cyst itself.? Options for further evaluation included but were not limited to laparoscopic oophorectomy (unilateral or bilateral) and expectant management with close ultrasound follow-up in 3-6 months to evaluate for any significant change in the size or characteristics of the left ovarian cyst. After discussion of all these factors and options, the patient opts for close follow-up with a repeat ultrasound in 3 months with the understanding that if any significant change is noted, laparoscopic oophorectomy (unilateral or bilateral) would most certainly be warranted to exclude a malignant or borderline neoplasm of the left ovary.? Patient also advised that referral to Gynecologic Oncology is an option for further evaluation and/or removal of the ovary should any significant concern exists regarding its potential for malignancy/borderline malignancy.? Follow-up US performed 09/24/2022 showed: PROCEDURE:? US PELVIC COMPLETE ? INDICATIONS:? FOLLOW UP LEFT OVARIAN CYST IN MENOPAUSAL PATIENT ? TECHNIQUE:? Real-time scanning was performed of the pelvic organs, with image documentation.? Additional endovaginal scanning was necessary due to incomplete visualization of the adnexal and endometrial structures by transabdominal scanning.? ? COMPARISON:? [facility], CT, CT ABDOMEN PELVIS WO/W CON, 02/03/2022, 14:40.? [facility], US, US PELVIC COMPLETE, 02/25/2022, 14:40. ? FINDINGS:? ?? Uterus:? Uterus is retroverted and normal in size at 6.4 x 4.9 x 2.9 cm. The myometrium is homogeneous. ? The endometrium measures 3 mm combined thickness.? Hypoechoic focus at the fundus myometrium measuring 1.1 x 1.1 x 0.6 cm, not significantly changed in size.? There is internal vascular. ? Ovaries:? The right ovary is not seen.? The left ovary measures 5 x 4.4 x 3.9 cm, with a calculated ovarian volume of 45 cc.? There is blood flow within the left ovary. Left ovarian cyst measuring 4.3 x 3.8 x 3.1 cm, volume of 26 cc, (previously 4.2 x 3.6 x 2.7 cm, volume of 21 cc).? There is a mural nodule which measures 1.2 cm.? No internal vascularity within the nodule.? ? Other:? No pathologic free abdominal or pelvic fluid.? ? IMPRESSION:? 1. Left ovarian cyst measuring 4.3 cm is mildly increased in size.? Mural nodule measuring 1.2 cm is similar in size.? Benign and malignant etiologies remain in the differential diagnosis.? Consider further evaluation with pelvic MRI. ? 2. Probable intramural fibroid measuring 1.1 cm. ? 3. Endometrium measures 0.3 cm. After consideration of all options, the patient has decided rather than further expectant management to move forward with laparoscopic bilateral salpingo oophorectomy.? She presents today for her scheduled surgery. Surgeon: Cristofer Menchaca Labor Standards Director: Gelacio Grullon Anesthesia Type: General Operative Notes Findings: The uterus is retroverted and normal in size shape and consistency. The right adnexa is normal in appearance with a normal-appearing tube and ovary. The left ovary contains a 4-5 cm simple cyst containing clear fluid and it is densely adherent to the left pelvic sidewall. The left fallopian tube is also involved with those adhesions and is also adherent to the ovary itself. Upon entry into the abdominal cavity, there are extensive adhesions in the periumbilical area which required open laparoscopy to identify an safe entry point. In addition once the abdominal contents could be visualized, there was an extensive sheet of adhesions extending all the way from the right side anterior abdominal wall in the pelvis all the way up to the umbilical area involving the left side of the anterior abdominal wall. All of these adhesions required lysis so as to be able to safely perform procedure in accurately identify underlying structures. Closure Type: primary Specimen(s): left tube & ovary and right tube & ovary Estimated blood loss (mL): 50 Blood products transfused: none Procedure in detail: With the patient under satisfactory general anesthesia in the modified dorsal lithotomy position, the perineum, vagina, and abdomen were prepped and draped in the usual manner for laparoscopy. A pre-surgical safety time-out was then taken in accordance with [facility] Main OR protocols. No uterine manipulator was inserted. The umbilicus was infiltrated with 0.5% Marcaine with epinephrine and a transverse subumbilical incision was made in line of her old subumbilical scar. The dissection was carried down to the fascia which was grasped with 2 John's and incised transversely. The dissection was then carried downward through the fascia and through extensive preperitoneal fat. Attempts to sharply and bluntly entered the peritoneal cavity or initially unsuccessful due to what appears to be periumbilical adhesions within the abdominal cavity. A 1 cm transverse incision was then made at aleman's point and insufflation of the abdominal cavity attempted with a very as needed. This was unsuccessful and introduction of a 5 mm trocar and sleeve through the incision with laparoscopic visualization was similarly unsuccessful. Attention was returned to entry into the infraumbilical incision and a free space around the periumbilical incisions was identified. A 12 mm Galeana trocar and sleeve were then introduced into the abdominal cavity and secured in place with the inflatable balloon. Correct positioning of the laparoscopic sleeve inside the abdominal cavity was confirmed with direct visualization laparoscopically. The entire lower abdominal wall was involved with a drape of adhesions involving the omentum which extended from the right side of the anterior cul-de-sac all the way up along the left side of the anterior abdominal wall to the area at and above the umbilicus. Because of that drape of adhesions, insertion of a 5 mm trocar and sleeve on the left side was not feasible initially and instead a single 5 mm trocar and sleeve were placed in the right mid quadrant under direct vision after infiltration of the skin and subcutaneous tissues with 0.5% Marcaine with epinephrine. Using the 2 puncture technique at this point, the power Seal device was used to coagulate and divide the adhesions to the anterior abdominal wall. Careful avoidance of all underlying structures was carried out at all times and eventually the drape of adhesions involving the anterior abdominal wall was lysed all the way from the pelvis up to the periumbilical area. Once that drape of adhesions and omentum was removed, the right side of the pelvis could be visualized. A 2nd 5 mm laparoscopic trocar and sleeve were then inserted through an incision in the left mid quadrant with careful avoidance of remaining adhesions on the left side of the mid and upper abdomen. The right tube and ovary were grasped, elevated, and the fimbria varicose coagulated/divided with the power Seal device. The power Seal device was then used to coagulate the mesosalpinx across to the cornua at which point the fallopian tube and utero-ovarian ligament were coagulated and divided. The right tube and ovary were retrieved using an Endo-Catch bag and brought out through the umbilical port. Attention was then turned to the left adnexa which could not be visualized initially. Adhesions involving the sigmoid colon and surrounding epiploica obscured the left adnexa. Sharp and blunt dissection was then carried out to mobilize the sigmoid away from the pelvic sidewall so that the infundibulopelvic ligament could be identified and isolated. Power Seal device was then used to coagulate and divide the infundibulopelvic ligament and a 4th trocar and sleeve were placed through a small incision in the suprapubic area. Using a 4 port approach, the ovary was mobilized and both sharp as well as blunt dissection were used to lyse the adhesions of the ovary to the sidewall so as to mobilize it for removal. During that dissection, the cyst wall was breached and clear fluid spilled from the ovarian cyst. The entire ovary was then dissected free of the sidewall using sharp and blunt dissection as well as judicious use of the power Seal device. Once freed of all adhesions, the ovary and tube on the left side were removed and placed in an Endo-Catch bag for removal through the 12 mm port. The pelvis was thoroughly irrigated then carefully examined for any sign of bleeding but there was none visualized. The bowel involved with the left ovary was carefully inspected and there was no evidence of bowel injury. The area of entry into the abdominal cavity was also carefully visualized and again there was no evidence of any injury to bowel or other intra-abdominal structures. At that point the pneumoperitoneum was vented and the umbilical incision closed 1st with 0 interrupted on the fascia, followed by 2-0 Vicryl interrupted on the subcutaneous tissues. 4-0 Monocryl was then used using inverted interrupted stitches to close all of the port incisions made during the course of the surgery. Appropriate dressings were then applied and the patient was awakened from anesthesia. She was then transferred to the PACU for a period of observation and recovery after having tolerated the procedure well. Complications: none Post-operative Condition: stable Disposition: PACU Plan for aftercare: Routine postoperative care with follow-up scheduled for 2 weeks postop.
[2022-12-18] MEDS: OXYCODONE/ACETAMINOPHEN 5/325 TABLET 1 TAB PO (14:33)
[2022-12-18] MEDS: ALBUTEROL 2.5 MG/3 ML NEB (ADULT) INH (14:43)
== END 2022-12-18 16:25 | disposition home or self-care (01) ==
PROVIDERS: Family Provider Family Medicine; PCP Family Medicine; Referring Provider Obstetrics & Gynecology; Visit Provider Obstetrics & Gynecology
PROC: 0UT24ZZ Resection of Bilateral Ovaries, Percutaneous Endoscopic Approach (ICD-10-PCS; CPT 58661; principal; 2022-12-18 09:45)
DX: D27.1 Benign neoplasm of left ovary (principal); N73.6 Female pelvic peritoneal adhesions (postinfective); N83.8 Other noninflammatory disorders of ovary, fallopian tube and broad ligament
CPT/HCPCS: 58661; J0171; J1100; J1170; J1885; J2250; J2405; J2704; J3010; J7613

== ENCOUNTER → 2023-03-02 16:34 | Outpatient (CLI) | payer OTHER, SELFPAY | PROVIDERS: Family Provider Family Medicine; PCP Family Medicine; Visit Provider Urology | DX: R31.21 Asymptomatic microscopic hematuria (principal); R39.15 Urgency of urination; R39.9 Unspecified symptoms and signs involving the genitourinary system | CPT/HCPCS: 51798; 81002; 87086 ==

== ENCOUNTER → 2023-08-12 14:11 | Outpatient (CLI) | payer OTHER, SELFPAY ==
--- NOTE | 2023-08-12 14:14 | DI.CT.S_ITS ---
PROCEDURE: CT LUNG LOW DOSE SCREENING INDICATIONS: chronic smoking TECHNIQUE: Noncontrast 2.0-2.5 mm thick sections acquired from the pulmonary apices to the posterior costophrenic angles. 7 mm thick axial MIP, and 5 mm coronal and sagittal reformats were then acquired. For radiation dose reduction, the following was used: automated exposure control, adjustment of mA and/or kV according to patient size. COMPARISON: None. FINDINGS: Image quality: Diagnostic. Lower Neck: No enlarged lymph nodes. Thyroid: No thyroid nodules which require sonographic follow up, per consensus guidelines. Axillae: No enlarged lymph nodes. Chest Wall: Thoracic spinal cord stimulator device is in place. Bones: Visualized osseous structures appear intact without acute fracture or focal destructive lesion. No acute compression fractures of the imaged spine. Lungs and Pleura: No pneumothorax or pleural effusions. Mild bilateral perihilar airway thickening with innumerable small ill-defined ground-glass and nodular opacities seen in the bilateral hemithoraces involving all lobes of the lung. Findings are most prominent in the right upper lobe and right lower lobe. These appear to be in a centrilobular distribution. No septal thickening or nodularity. Heart: Heart size is normal. No pericardial effusion. Coronary atherosclerotic vascular calcifications are noted. Thoracic Vessels: The aorta and pulmonary arteries demonstrate normal size. Mediastinum and Nahomi: Multiple prominent mediastinal and hilar lymph nodes which are more notable for number rather than size are favored to represent reactive adenopathy. Esophagus: No wall thickening. No hiatal hernia. Upper Abdomen: Visualized upper abdomen solid organs and bowel loops appear normal. IMPRESSION: Innumerable small ill-defined ground-glass and nodular opacities seen throughout the bilateral hemithoraces in a somewhat centrilobular distribution with associated perihilar airway thickening and reactive mediastinal lymph nodes. Findings are likely related to an infectious or inflammatory process. LUNG-RADS 2S; recommend follow-up chest CT in 3 months to document stability versus resolution. Dictated by: Grant Garcia M.D. on 08/12/2023 at 19:55 Approved by: Grant Garcia M.D. on 08/12/2023 at 20:25
[2023-08-12 15:29] LABS: Add Manual Diff / Slide Review NO; Basophils Absolute Auto 100 /uL (0-100); Basophils Percent Auto 1.4 % (0-2); Eosinophils Absolute Auto 200 /uL (0-450); Eosinophils Percent Auto 4.3 % (2-4); Hematocrit 42.6 % (36-46); Hemoglobin 15.1 g/dL (12.0-16.0); Lymphocytes Absolute Auto 1400 /uL (1100-4500); Lymphocytes Percent Auto 29.2 % (25-40); Mean Corpuscular HGB Conc 35.4 % (30-36); Mean Corpuscular Hemoglobin 31.3 PG (26-34); Mean Corpuscular Volume 88.6 fL (80-100); Monocytes Absolute Auto 500 /uL (0-900); Monocytes Percent Auto 9.4 % (3-14); Neutrophils Absolute Auto 2700 /uL (1500-7000); Neutrophils Percent Auto 55.7 % (50-75); Platelet Count 160 X10^3/uL (150-400); Red Cell Distribution Width 13.2 % (11.6-14.8); White Blood Cell Count 4.8 X10^3/uL (4.5-11.0)
[2023-08-12 15:47] LABS: Hemoglobin A1C% w Est Avg Glu 5.4 % (4.0-6.0)
[2023-08-12 15:58] LABS: Alanine Aminotransferase 26 IU/L (<35); Albumin Globulin Ratio 0.9 (1.0-2.8); Alkaline Phosphatase 123 U/L (38-126); Aspartate Aminotransferase 36 IU/L (14-36); BUN Creatinine Ratio 8.6 (6-22); Bilirubin Total 0.6 mg/dL (0.2-1.3); Blood Urea Nitrogen 9 mg/dL (7-17); Calcium 9.4 mg/dL (8.4-10.2); Carbon Dioxide 23 mmol/L (22-32); Chloride 101 mmol/L (98-107); Cholesterol 171 mg/dL (140-199); Estimated Glomerular Filt Rate > 60 mL/min (>60); Globulin 4.3 g/dL (1.7-4.1); Glucose 126 mg/dL (80-110); HDL Cholesterol 57 mg/dL (40-60); HEMOLYSIS < 15 (0-50); LDL Cholesterol Calculated 91 mg/dL (<100); Potassium 4.4 mmol/L (3.4-5.1); Sodium 140 mmol/L (137-145); Total Protein 8.3 g/dL (6.3-8.2); Triglycerides 117 mg/dL (35-150)
[2023-08-12 16:29] LABS: TSH w/ Reflex to FT4 2.14 uIU/mL (0.47-4.68)
[2023-08-12 16:47] LABS: Vitamin B12 823 pg/mL (239-931)
[2023-08-16 16:07] LABS: Albumin 3.3 g/dL (2.9-4.4); Alpha-1-Globulin 0.2 g/dL (0.0-0.4); Alpha-2-Globulin 0.7 g/dL (0.4-1.0); Gamma Globulin 2.2 g/dL (0.4-1.8); Globulin Total 4.2 g/dL (2.2-3.9); Protein, Total 7.5 g/dL (6.0-8.5)
== END ==
PROVIDERS: Family Provider Family Medicine; PCP Family Medicine; Referring Provider Family Medicine; Visit Provider Family Medicine
DX: R05.3 Chronic cough (principal); D83.9 Common variable immunodeficiency, unspecified; F17.210 Nicotine dependence, cigarettes, uncomplicated; F32.9 Major depressive disorder, single episode, unspecified; E78.2 Mixed hyperlipidemia; R73.9 Hyperglycemia, unspecified
CPT/HCPCS: 36415; 71271; 80053; 80061; 82607; 83036; 84155; 84165; 84443; 85025

== ENCOUNTER → 2023-08-13 14:07 | Outpatient (CLI) | payer OTHER, SELFPAY ==
[2023-08-13 16:06] LABS: Creatinine Urine Random 99.5 mg/dL
[2023-08-13 16:12] LABS: Microalbumin Urine Random < 0.6 mg/dL (0-1.6)
== END ==
PROVIDERS: Family Provider Family Medicine; PCP Family Medicine; Referring Provider Family Medicine; Visit Provider Family Medicine
DX: D83.9 Common variable immunodeficiency, unspecified (principal); F32.9 Major depressive disorder, single episode, unspecified; E78.2 Mixed hyperlipidemia; R73.9 Hyperglycemia, unspecified; R05.3 Chronic cough
CPT/HCPCS: 82043; 82570

== ENCOUNTER → 2023-09-03 14:45 | Outpatient (CLI) | payer OTHER, SELFPAY | PROVIDERS: Family Provider Family Medicine; PCP Family Medicine; Visit Provider Urology | DX: N32.81 Overactive bladder (principal); R31.21 Asymptomatic microscopic hematuria; R39.15 Urgency of urination; R39.9 Unspecified symptoms and signs involving the genitourinary system; Z87.891 Personal history of nicotine dependence | CPT/HCPCS: 81002; 87086 ==

== ENCOUNTER → 2023-11-17 13:41 | Outpatient (CLI) | payer OTHER, SELFPAY ==
--- NOTE | 2023-11-17 | DI.MG.S_ITS ---
BILATERAL DIGITAL SCREENING MAMMOGRAM 3D/2D WITH CAD: 11/17/2023 CLINICAL: Routine screening. Family history of breast cancer. Comparison is made to exams dated: 06/11/2021 mammogram, 11/13/2019 mammogram, and 08/21/2016 mammogram - [facility]. Both breasts are heterogeneously dense, which may obscure small masses (category c / 51-75% glandular tissue). Current study was also evaluated with a Computer Aided Detection (CAD) system. There is a biopsy clip in the left breast. No significant masses, calcifications, or other findings are seen in either breast. There has been no significant interval change. IMPRESSION: BENIGN There is no mammographic evidence of malignancy. A 1 year screening mammogram is recommended. Based on the Tyrer Cuzick model (a risk assessment model) the patient's lifetime risk is 13.5% and her 10 year risk is 6.2%. According to the ACR, ACS, and NCCN guidelines, an annual breast MRI exam along with mammogram is recommended if the patient's lifetime risk is 20% or greater. This exam was interpreted at Station ID: [id number]. NOTE: For mammograms, a report in lay terms will be sent to the patient. Approximately 15% of breast malignancies will not be visualized mammographically. In the management of a palpable breast mass, a negative mammogram must not discourage biopsy of a clinically suspicious lesion. Electronically Signed By: Savana Aburto M.D., Ph.D. oma/tereza:11/17/2023 14:31:36 copy to: Kun Skelton letter sent: Normal Exam ACR BI-RADS Category 2: Benign Finding(s) 3342F
--- NOTE | 2023-11-17 13:42 | DI.CT.S_ITS ---
PROCEDURE: CT CHEST WO CON INDICATIONS: repeat for enlarged lymph nodes in 08/21 TECHNIQUE: Noncontrast 5 mm thick sections acquired from the pulmonary apices to the posterior costophrenic angles. 1 mm lung window, 5 mm thick coronal and sagittal and 7 mm axial MIP reformats were then acquired. For radiation dose reduction, the following was used: automated exposure control, adjustment of mA and/or kV according to patient size. COMPARISON: [facility], CT, CT LUNG LOW DOSE SCREENING, 08/12/2023, 14:28. FINDINGS: Image quality: Diagnostic. Lower Neck: No enlarged lymph nodes. Thyroid: No thyroid nodules which require sonographic follow up, per consensus guidelines. Axillae: No enlarged lymph nodes. Chest Wall: Unremarkable. Bones: Unremarkable. Lungs and Pleura: When compared with the study dated August 12, 2023, the diffuse ground-glass nodules throughout both lungs have decreased in extent, but are not entirely resolved. These appear less consolidated than on the prior study. As before, there is bronchial wall thickening predominantly within the central and segmental bronchi bilaterally. No pleural effusion or pneumothorax. Heart: Heart size is normal. No pericardial effusion. Thoracic Vessels: The aorta and pulmonary arteries demonstrate normal size. Scattered atheromatous calcifications are present within the aortic arch. Mediastinum and Nahomi: No enlarged lymph nodes. Esophagus: No wall thickening. No hiatal hernia. Upper Abdomen: Visualized upper abdomen solid organs and bowel loops appear normal. IMPRESSION: 1. Partial resolution of the diffuse ground-glass pulmonary nodules throughout both lungs when compared with the study dated August 12, 2023. However, innumerable nodules persist in addition to persistent bronchial wall thickening bilaterally. Findings suggest ongoing indolent infection. Continued follow-up to resolution recommended. Dictated by: Leisa Montgomery M.D. on 11/17/2023 at 16:17 Approved by: Leisa Montgomery M.D. on 11/17/2023 at 16:20
== END ==
LOC: MAMMO 13:41
PROVIDERS: Family Provider Family Medicine; PCP Family Medicine; Referring Provider Family Medicine; Visit Provider Family Medicine
DX: Z80.3 Family history of malignant neoplasm of breast (principal); R92.333 Mammographic heterogeneous density, bilateral breasts; J45.20 Mild intermittent asthma, uncomplicated; R91.8 Other nonspecific abnormal finding of lung field; Z12.31 Encounter for screening mammogram for malignant neoplasm of breast; R59.9 Enlarged lymph nodes, unspecified; F17.200 Nicotine dependence, unspecified, uncomplicated
CPT/HCPCS: 71250; 77063; 77067

== ENCOUNTER → 2024-02-23 14:10 | Outpatient (CLI) | payer OTHER, SELFPAY ==
[2024-02-23 15:18] LABS: Alanine Aminotransferase 16 IU/L (<35); Albumin 4.4 g/dL (3.5-5.0); Albumin Globulin Ratio 1.2 (1.0-2.8); Alkaline Phosphatase 124 U/L (38-126); Aspartate Aminotransferase 22 IU/L (14-36); BUN Creatinine Ratio 9.2 (6-22); Bilirubin Total 0.6 mg/dL (0.2-1.3); Blood Urea Nitrogen 11 mg/dL (7-17); Calcium 9.6 mg/dL (8.4-10.2); Carbon Dioxide 29 mmol/L (22-32); Chloride 100 mmol/L (98-107); Estimated Glomerular Filt Rate 51 mL/min (>60); Globulin 3.7 g/dL (1.7-4.1); Glucose 101 mg/dL (80-110); HEMOLYSIS < 15 (0-50); Potassium 4.1 mmol/L (3.4-5.1); Sodium 138 mmol/L (137-145); Total Protein 8.1 g/dL (6.3-8.2)
[2024-02-23 16:34] LABS: Hep C Virus Ab w/Reflex Quant NEGATIVE s/c (NEGATIVE)
== END ==
PROVIDERS: Family Provider Family Medicine; PCP Family Medicine; Referring Provider Family Medicine; Visit Provider Family Medicine
DX: D83.9 Common variable immunodeficiency, unspecified (principal); F32.9 Major depressive disorder, single episode, unspecified; E78.2 Mixed hyperlipidemia; R73.9 Hyperglycemia, unspecified; R89.9 Unspecified abnormal finding in specimens from other organs, systems and tissues; F41.9 Anxiety disorder, unspecified; F17.200 Nicotine dependence, unspecified, uncomplicated
CPT/HCPCS: 36415; 80053; 84155; 84165; 86803

== ENCOUNTER → 2024-03-03 13:22 | Outpatient (CLI) | payer OTHER, SELFPAY ==
--- NOTE | 2024-03-03 13:22 | DI.CT.S_ITS ---
PROCEDURE: CT CHEST WO CON INDICATIONS: Current smoker History of tobacco use Common varia TECHNIQUE: Noncontrast 2.0-2.5 mm thick sections acquired from the pulmonary apices to the posterior costophrenic angles. 7 mm thick axial MIP, and 5 mm coronal and sagittal reformats were then acquired. For radiation dose reduction, the following was used: automated exposure control, adjustment of mA and/or kV according to patient size. COMPARISON: [facility], CT, CT CHEST WO CON, 11/17/2023, 13:53. FINDINGS: Image quality: Diagnostic. Lower Neck: No enlarged lymph nodes. Thyroid: No thyroid nodules which require sonographic follow up, per consensus guidelines. Axillae: No enlarged lymph nodes. Chest Wall: Unremarkable. Bones: Unremarkable. Lungs and Pleura: No pneumothorax or pleural effusions. Diffuse faint centrilobular ground-glass nodules. Diffuse bronchial thickening. Juxtapleural nodules with smooth margins, favoring benign intrapulmonary lymph nodes. Heart: Heart size is normal. No pericardial effusion. Thoracic Vessels: The aorta and pulmonary arteries demonstrate normal size. Mediastinum and Nahomi: No enlarged lymph nodes. Esophagus: No wall thickening. No hiatal hernia. Upper Abdomen: Visualized upper abdomen solid organs and bowel loops appear normal. IMPRESSION: No suspicious pulmonary nodules. LUNG-RADS 2; continued annual screening, if eligible. Clinically Significant Non-pulmonary Findings: Diffuse faint centrilobular ground-glass nodules, concerning for respiratory bronchiolitis, hypersensitivity pneumonitis or respiratory bronchiolitis interstitial lung disease. Consider pulmonology referral. Dictated by: Carlos Eduardo Dumont M.D. on 03/05/2024 at 8:21 Approved by: Carlos Eduardo Dumont M.D. on 03/05/2024 at 8:26
== END ==
PROVIDERS: Family Provider Family Medicine; PCP Family Medicine; Referring Provider Family Medicine; Visit Provider Family Medicine
DX: R91.8 Other nonspecific abnormal finding of lung field (principal); D83.9 Common variable immunodeficiency, unspecified; F17.200 Nicotine dependence, unspecified, uncomplicated
CPT/HCPCS: 71250

== ENCOUNTER → 2024-05-31 08:59 | Outpatient (CLI) | payer OTHER, SELFPAY ==
[2024-05-31 10:41] LABS: Alanine Aminotransferase 23 IU/L (<35); Albumin 4.5 g/dL (3.5-5.0); Albumin Globulin Ratio 1.6 (1.0-2.8); Alkaline Phosphatase 141 U/L (38-126); Aspartate Aminotransferase 25 IU/L (14-36); BUN Creatinine Ratio 10.2 (6-22); Bilirubin Total 0.6 mg/dL (0.2-1.3); Blood Urea Nitrogen 13 mg/dL (7-17); Calcium 9.9 mg/dL (8.4-10.2); Carbon Dioxide 28 mmol/L (22-32); Chloride 99 mmol/L (98-107); Estimated Glomerular Filt Rate 48 mL/min (>60); Globulin 2.8 g/dL (1.7-4.1); Glucose 135 mg/dL (80-110); HEMOLYSIS < 15 (0-50); Sodium 139 mmol/L (137-145); Total Protein 7.3 g/dL (6.3-8.2)
[2024-06-01 15:58] LABS: Hep C Virus Ab w/Reflex Quant NEGATIVE s/c (NEGATIVE)
[2024-06-02 17:11] LABS: Albumin 3.6 g/dL (2.9-4.4); Alpha-1-Globulin 0.2 g/dL (0.0-0.4); Alpha-2-Globulin 0.8 g/dL (0.4-1.0); Gamma Globulin 1.3 g/dL (0.4-1.8); Globulin Total 3.5 g/dL (2.2-3.9); Protein, Total 7.1 g/dL (6.0-8.5)
== END ==
PROVIDERS: Family Provider Family Medicine; PCP Family Medicine; Referring Provider Family Medicine; Visit Provider Family Medicine
DX: Z00.00 Encounter for general adult medical examination without abnormal findings (principal); D83.9 Common variable immunodeficiency, unspecified; F17.200 Nicotine dependence, unspecified, uncomplicated; E78.2 Mixed hyperlipidemia; F32.9 Major depressive disorder, single episode, unspecified; F41.9 Anxiety disorder, unspecified; R31.21 Asymptomatic microscopic hematuria
CPT/HCPCS: 36415; 80053; 84155; 84165; 86803

== ENCOUNTER → 2024-06-06 14:21 | Outpatient (CLI) | payer OTHER, SELFPAY ==
--- NOTE | 2024-06-06 14:22 | DI.RAD.S_ITS ---
PROCEDURE: XR SHOULDER RT MIN 2V INDICATIONS: right shoulder pain TECHNIQUE: 3 views of the shoulder were acquired. COMPARISON: [facility], , SHOULDER MINIMUM 2 VIEW LEFT, 01/15/2016, 16:30. FINDINGS: Bones: No fracture or dislocation. Joint spaces align normally. Some calcification faintly is seen immediately adjacent to the greater tuberosity which may indicate calcific tendinitis. IMPRESSION: Findings raising suspicion for calcific tendonitis as above Dictated by: Max Hicks M.D. on 06/06/2024 at 15:34 Approved by: Max Hicks M.D. on 06/06/2024 at 15:37
== END ==
LOC: RAD 14:22
PROVIDERS: Family Provider Family Medicine; PCP Family Medicine; Referring Provider Family Medicine; Visit Provider Family Medicine
DX: M25.511 Pain in right shoulder (principal)
CPT/HCPCS: 73030

== ENCOUNTER → 2024-07-05 12:34 | Outpatient (CLI) | payer OTHER, SELFPAY ==
[2024-07-05 14:54] LABS: Hemoglobin A1C% w Est Avg Glu 5.6 % (4.0-6.0)
[2024-07-05 15:09] LABS: Alanine Aminotransferase 20 IU/L (<35); Albumin 4.3 g/dL (3.5-5.0); Albumin Globulin Ratio 1.4 (1.0-2.8); Alkaline Phosphatase 127 U/L (38-126); Aspartate Aminotransferase 26 IU/L (14-36); BUN Creatinine Ratio 10.6 (6-22); Bilirubin Total 0.5 mg/dL (0.2-1.3); Blood Urea Nitrogen 12 mg/dL (7-17); Calcium 9.3 mg/dL (8.4-10.2); Carbon Dioxide 27 mmol/L (22-32); Chloride 102 mmol/L (98-107); Estimated Glomerular Filt Rate 55 mL/min (>60); Glucose 122 mg/dL (80-110); HEMOLYSIS < 15 (0-50); Potassium 4.1 mmol/L (3.4-5.1); Sodium 138 mmol/L (137-145); Total Protein 7.3 g/dL (6.3-8.2)
== END ==
PROVIDERS: Family Provider Family Medicine; PCP Family Medicine; Referring Provider Family Medicine; Visit Provider Family Medicine
DX: D83.9 Common variable immunodeficiency, unspecified (principal); N18.30 Chronic kidney disease, stage 3 unspecified
CPT/HCPCS: 36415; 80053; 83036

== ENCOUNTER → 2024-09-07 11:02 | Outpatient (CLI) | payer OTHER, SELFPAY ==
[2024-09-07 11:18] LABS: Appearance Urine UA CLEAR; Bilirubin Urine UA NEGATIVE (NEGATIVE); Color Urine UA YELLOW; Glucose Urine UA NEGATIVE (Negative); Ketones Urine UA NEGATIVE (NEGATIVE); Leukocyte Esterase Urine UA NEGATIVE (NEGATIVE); Nitrite Urine UA NEGATIVE (Negative); Occult Blood Urine UA NEGATIVE (Negative); Protein Urine UA NEGATIVE (Negative); Urobilinogen Urine UA 0.2 E.U./dL (0.2)
[2024-09-07 11:27] LABS: Bacteria Urine Few (2-10); Culture Indicated Urine Specimen Cultured; RBC Urine None Seen (0-5/HPF); Renal Epithelial Cells Urine 1-5/HPF (0-1/HPF); Squamous Epithelial Cell Urine 5-10 /HPF (0-5/HPF); Transitional Epi Cells Urine 1-5/HPF (0-5/HPF); Urine Volume 10mL (spun); WBC Urine 5-10/HPF (0-5/HPF)
== END ==
PROVIDERS: Family Provider Family Medicine; PCP Family Medicine; Visit Provider Urology
DX: R39.9 Unspecified symptoms and signs involving the genitourinary system (principal)
CPT/HCPCS: 81001; 87086

== ENCOUNTER → 2025-02-01 12:53 | Outpatient (CLI) | payer OTHER, SELFPAY ==
[2025-02-01 14:11] LABS: Hematocrit 41.0 % (36-46); Hemoglobin 14.4 g/dL (12.0-16.0); Mean Corpuscular HGB Conc 35.2 % (30-36); Mean Corpuscular Hemoglobin 31.6 PG (26-34); Mean Corpuscular Volume 89.8 fL (80-100); Platelet Count 185 X10^3/uL (150-400)
[2025-02-01 14:12] LABS: Add Manual Diff / Slide Review YES
[2025-02-01 14:27] LABS: Atypical Lymphocytes Percent 11.0 %; Eosinophils Percent Manual 16.0 % (2-4); Lymphocytes Percent Manual 7.0 % (25-45); Monocytes Percent Manual 6.0 % (2-11); Neutrophils Absolute Manual 5460 /uL (3000-5900); RBC Morphology Normal Morphology; Segmented Neutrophils Percent 60.0 % (38-70); Total Cells Counted 100
[2025-02-01 14:37] LABS: Alanine Aminotransferase 16 IU/L (<35); Albumin 4.4 g/dL (3.5-5.0); Albumin Globulin Ratio 1.3 (1.0-2.8); Alkaline Phosphatase 145 U/L (38-126); Blood Urea Nitrogen 10 mg/dL (7-17); Calcium 9.5 mg/dL (8.4-10.2); Carbon Dioxide 28 mmol/L (22-32); Chloride 99 mmol/L (98-107); Cholesterol 175 mg/dL (140-199); Estimated Glomerular Filt Rate > 60 mL/min (>60); Globulin 3.4 g/dL (1.7-4.1); Glucose 115 mg/dL (70-99); HDL Cholesterol 56 mg/dL (40-60); HEMOLYSIS 19 (0-50); Potassium 4.6 mmol/L (3.4-5.1); Sodium 140 mmol/L (137-145); Total Protein 7.8 g/dL (6.3-8.2); Triglycerides 139 mg/dL (35-150)
[2025-02-01 15:06] LABS: TSH w/ Reflex to FT4 1.38 uIU/mL (0.47-4.68)
== END ==
PROVIDERS: PCP Family Medicine; Referring Provider Family Medicine; Visit Provider Family Medicine
DX: R73.9 Hyperglycemia, unspecified (principal); K21.9 Gastro-esophageal reflux disease without esophagitis; D83.9 Common variable immunodeficiency, unspecified; N32.81 Overactive bladder
CPT/HCPCS: 36415; 80053; 80061; 84443; 85007; 85025

== ENCOUNTER → 2025-04-11 11:52 | Outpatient (CLI) | payer OTHER, SELFPAY ==
--- NOTE | 2025-04-11 11:55 | DI.MG.S_ITS ---
MM screening mammo BI: 04/11/2025. BI-RADS: 1 CLINICAL: 64-year old female for bilateral screening mammogram. Tyrer-Cuzick lifetime risk of 18.0%. No personal or first-degree family history of breast cancer. Current reported family history of breast cancer: paternal grandmother and paternal aunt. The patient had a prior left breast biopsy. PRIOR EXAMS 11/17/2023, 06/11/2021, 11/13/2019, 08/21/2016. MAMMOGRAPHY TECHNIQUE: 2D and 3D (tomosynthesis) digital mammographic views obtained, with additional images as needed for full coverage. Current study was also evaluated with a Computer Aided Detection (CAD) system. DENSITY C. The breasts are heterogeneously dense, which may obscure small masses. MAMMOGRAPHY FINDINGS Bilateral: No suspicious mass, asymmetry, microcalcification, or other abnormality seen. IMPRESSION: * No evidence of malignancy. RECOMMENDATIONS Bilateral * Annual screening mammography. OVERALL ASSESSMENT CATEGORY BI-RADS-1: Negative. [employer] recommends annual screening mammography beginning at age 40 for women with average risk of breast cancer. ELECTRONICALLY SIGNED: Savana Aburto M.D. on 04/14/2025 at 01:39:48 PM PT Interpreting Station ID: [id number]
--- NOTE | 2025-04-11 11:55 | DI.CT.S_ITS ---
PROCEDURE: CT LUNG LOW DOSE SCREENING INDICATIONS: smoking history TECHNIQUE: Noncontrast 2.0-2.5 mm thick sections acquired from the pulmonary apices to the posterior costophrenic angles. 7 mm thick axial MIP, and 5 mm coronal and sagittal reformats were then acquired. For radiation dose reduction, the following was used: automated exposure control, adjustment of mA and/or kV according to patient size. COMPARISON: [facility], CT, CT LUNG LOW DOSE SCREENING, 08/12/2023, 14:28. FINDINGS: Image quality: Diagnostic. Lower Neck: No enlarged lymph nodes. Thyroid: No thyroid nodules which require sonographic follow up, per consensus guidelines. Axillae: No enlarged lymph nodes. Chest Wall: Unremarkable. Bones: Partially imaged left humerus fracture suspected. Spinal stimulator leads in the lower thoracic spine. Multilevel degenerative disc disease of the thoracic spine. Lungs and Pleura: No pneumothorax or pleural effusions. No consolidation or suspicious nodules. Heart: Heart size is normal. No pericardial effusion. Coronary calcification. Thoracic Vessels: The aorta and pulmonary arteries demonstrate normal size. Mediastinum and [place]: Abnormally enlarged subcarinal lymph node conglomerate versus unchanged. Esophagus: No wall thickening. No hiatal hernia. Upper Abdomen: Visualized upper abdomen solid organs and bowel loops appear normal. IMPRESSION: No suspicious pulmonary nodules. LUNG-RADS 1; continued annual screening, if eligible. Clinically Significant Non-pulmonary Findings: Coronary calcifications. Stable mediastinal adenopathy. Dictated by: Gadiel Frederick M.D. on 04/11/2025 at 18:53 Approved by: Gadiel Frederick M.D. on 04/11/2025 at 18:58
[2025-04-11 12:53] LABS: Add Manual Diff / Slide Review NO; Hematocrit 42.3 % (36-46); Hemoglobin 14.6 g/dL (12.0-16.0); Lymphocytes Absolute Auto 1100 /uL (1100-4500); Mean Corpuscular HGB Conc 34.4 % (30-36); Mean Corpuscular Hemoglobin 31.8 PG (26-34); Mean Corpuscular Volume 92.5 fL (80-100); Platelet Count 173 X10^3/uL (150-400)
[2025-04-11 13:17] LABS: Alanine Aminotransferase 16 IU/L (<35); Albumin 4.3 g/dL (3.5-5.0); Albumin Globulin Ratio 1.4 (1.0-2.8); Alkaline Phosphatase 119 U/L (38-126); Blood Urea Nitrogen 13 mg/dL (7-17); Calcium 9.4 mg/dL (8.4-10.2); Carbon Dioxide 29 mmol/L (22-32); Chloride 99 mmol/L (98-107); Estimated Glomerular Filt Rate > 60 mL/min (>60); Globulin 3.1 g/dL (1.7-4.1); Glucose 125 mg/dL (70-99); HEMOLYSIS 16 (0-50); Potassium 4.1 mmol/L (3.4-5.1); Sodium 139 mmol/L (137-145); Total Protein 7.4 g/dL (6.3-8.2)
[2025-04-12 04:08] LABS: IGA 226 mg/dL (87-352); IGG 1233 mg/dL (586-1602); IGM 74 mg/dL (26-217)
== END ==
LOC: MAMMO 11:54
PROVIDERS: Physician Assistant; PCP Family Medicine; Referring Provider Family Medicine; Visit Provider Family Medicine
DX: Z87.891 Personal history of nicotine dependence (principal); Z12.31 Encounter for screening mammogram for malignant neoplasm of breast; R92.333 Mammographic heterogeneous density, bilateral breasts; Z80.3 Family history of malignant neoplasm of breast
CPT/HCPCS: 36415; 71271; 77063; 77067; 80053; 82784; 85025; 85651; 86037; 86140